=== PATIENT | female | born 1965 | race Caucasian/White ===

== ENCOUNTER 2017-03-13 19:43 | Emergency (ER) | payer SELFPAY ==
[2017-03-13 19:58] VITALS: BP 117/79
[2017-03-13] MEDS ORDERED: Albuterol/Ipratropium 3.0-0.5 MG/3 ML Neb Soln NEB ONE (20:16)
--- NOTE | 2017-03-13 20:19 | EDM.PDOC ---
ED HPI GENERAL MEDICAL PROBLEM - General Chief Complaint: Respiratory Problem Stated Complaint: ILLNESS Time Seen by Provider: 03/13/17 20:11 Source of Information: Reports: Patient, Family, RN Notes Reviewed History Limitations: Reports: No Limitations - History of Present Illness INITIAL COMMENTS - FREE TEXT/NARRATIVE: 51-year-old female presents to the emergency department day complaint of shortness of breath, she states she's been dealing with this for about a month does have a history of tobacco use has been evaluated by her primary care has been treated with a 2 week course of amoxicillin as well as prednisone coughs up white sputum feel short of breath and his wheezing has received no improvement from the antibiotics or the prednisone denies any fevers but has felt chilled - Related Data Allergies Allergy/AdvReac Type Severity Reaction Status Date / Time codeine Allergy Severe Swelling Verified 03/23/15 11:30 Home Meds: Home Meds Omeprazole [priLOSEC OTC] 20 mg PO DAILY 03/20/13 [History] Acyclovir 400 mg PO DAILY 03/23/15 [History] Albuterol [Ventolin HFA] 18 gm IN Q4HR PRN 03/23/15 [History] ALPRAZolam [Alprazolam] 0.25 mg PO DAILY PRN 03/13/17 [History] Albuterol Sulfate [Ventolin Hfa] 03/13/17 [History] Albuterol/Ipratropium [DuoNeb 3.0-0.5 MG/3 ML] 3 ml IN Q6HR PRN 03/13/17 [ History] Nystatin [Nystatin] 5 ml PO QID 03/13/17 [History] Venlafaxine [Effexor XR] 37.5 mg PO DAILY 03/13/17 [History] predniSONE [Prednisone] 20 mg PO ASDIRECTED 03/13/17 [History] Past Medical History Psychiatric History: Reports: Anxiety, Depression - Past Surgical History GI Surgical History: Reports: Cholecystectomy, Hernia Repair/Other Female Surgical History: Reports: Section Social & Family History - Tobacco Use Smoking Status *Q: Current Every Day Smoker Years of Tobacco use: 20 Packs/Tins Daily: 0.5 Used Tobacco, but Quit: No Second Hand Smoke Exposure: No - Alcohol Use Days Per Week of Alcohol Use: 0 - Recreational Drug Use Recreational Drug Use: No ED ROS GENERAL - Review of Systems Review Of Systems: See Below Constitutional: Reports: Chills. Denies: Fever HEENT: Reports: No Symptoms Respiratory: Reports: Shortness of Breath, Wheezing, Cough, Sputum Cardiovascular: Reports: Dyspnea on Exertion GI/Abdominal: Reports: No Symptoms : Reports: No Symptoms Musculoskeletal: Reports: No Symptoms Skin: Reports: No Symptoms ED EXAM, GENERAL - Physical Exam Exam: See Below Free Text/Narrative:: General: Female, not in any distress, alert and oriented x3 HEENT: head is atraumatic normocephalic, eyes pupils equal round reactive to light, sclera clear no conjunctivitis appreciated. Ears tympanic membranes clear and berman landmarks and light reflex are present bilaterally canals are clear. Nose no septal deviation, nares are clear, no blood present. Mouth mucosa is moist and pink no erythema or exudate noted in soft palate, tongue is midline uvula is midline, dentition is intact. Neck: Supple no thyromegaly no tracheal deviation. Nodes: Cervical nodes subclavicular nodes nontender no palpable lymphadenopathy noted. Lungs: Breath sounds are distant she does have an expiratory wheeze mid to lower lung ayoub bilaterally CV: Regular rate and rhythm S1 and S2 appreciated no murmurs rubs or gallops noted. Abdomen: Soft, nontender, no palpable masses or organomegaly appreciated, no distention no guarding bowel sounds are present, . Neuro: Cranial nerves II through XII grossly intact Skin: Warm and dry, intact Extremities: No lower extremity edema appreciated, Course - Vital Signs Last Recorded V/S: Last Vital Signs Temp 94.8 F L 03/13/17 20:08 Pulse 79 03/13/17 20:08 Resp 18 03/13/17 19:57 BP 117/79 03/13/17 20:08 Pulse Ox 94 L 03/13/17 20:08 - Orders/Labs/Meds Orders: Active Orders 24 hr Category Date Time Status RT Aerosol Therapy [RC] ASDIRECTED Care 03/13/17 20:16 Active Chest 2V [CR] Urgent Exams 03/13/17 20:15 Taken Labs: Laboratory Tests 03/13/17 03/13/17 03/13/17 Range/Units 20:15 20:15 20:22 WBC 9.7 (4.5-11.0) K/uL RBC 4.50 (3.30-5.50) M/uL Hgb 14.4 (12.0-15.0) g/dL Hct 41.7 (36.0-48.0) % MCV 93 (80-98) fL MCH 32 H (27-31) pg MCHC 35 (32-36) % Plt Count 262 (150-400) K/uL Neut % (Auto) 75 H (36-66) % Lymph % (Auto) 19 L (24-44) % [place]ccormick % (Auto) 6 (2-6) % Eos % (Auto) 0 L (2-4) % Baso % (Auto) 0 (0-1) % D-Dimer, Quantitative (0.0-400.0) ng/mL Sodium 141 (140-148) mmol/L Potassium 3.9 (3.6-5.2) mmol/L Chloride 102 (100-108) mmol/L Carbon Dioxide 26 (21-32) mmol/L Anion Gap 13.3 (5.0-14.0) mmol/L BUN 17 D (7-18) mg/dL Creatinine 0.9 (0.6-1.0) mg/dL Est Cr Clr Drug Dosing 56.90 mL/min Estimated GFR (MDRD) > 60 (>60) Glucose 104 (74-106) mg/dL Calcium 9.7 D (8.5-10.1) mg/dL Total Bilirubin 0.4 (0.2-1.0) mg/dL AST 13 L (15-37) U/L ALT 21 (12-78) U/L Alkaline Phosphatase 71 (46-116) U/L Troponin I < 0.017 (0.000-0.056) ng/mL NT-Pro-B Natriuret Pep 154 H (5-125) pg/mL Total Protein 7.4 (6.4-8.2) g/dL Albumin 4.0 (3.4-5.0) g/dL Globulin 3.4 (2.3-3.5) g/dL Albumin/Globulin Ratio 1.2 (1.2-2.2) Urine Color Urine Appearance Urine pH (4.5-8.0) Ur Specific Leeper (1.008-1.030) Urine Protein (NEGATIVE) mg/dL Urine Glucose (UA) (NEGATIVE) mg/dL Urine Ketones (NEGATIVE) mg/dL Urine Occult Blood (NEGATIVE) Urine Nitrite (NEGATIVE) Urine Bilirubin (NEGATIVE) Urine Urobilinogen (NORMAL) mg/dL Ur Leukocyte Esterase (NEGATIVE) Urine RBC (0-5) Urine WBC (0-5) Ur Epithelial Cells Amorphous Sediment Urine Bacteria Urine Mucus 03/13/17 03/13/17 Range/Units 20:49 21:03 WBC (4.5-11.0) K/uL RBC (3.30-5.50) M/uL Hgb (12.0-15.0) g/dL Hct (36.0-48.0) % MCV (80-98) fL MCH (27-31) pg MCHC (32-36) % Plt Count (150-400) K/uL Neut % (Auto) (36-66) % Lymph % (Auto) (24-44) % Mccormick % (Auto) (2-6) % Eos % (Auto) (2-4) % Baso % (Auto) (0-1) % D-Dimer, Quantitative 212 (0.0-400.0) ng/mL Sodium (140-148) mmol/L Potassium (3.6-5.2) mmol/L Chloride (100-108) mmol/L Carbon Dioxide (21-32) mmol/L Anion Gap (5.0-14.0) mmol/L BUN (7-18) mg/dL Creatinine (0.6-1.0) mg/dL Est Cr Clr Drug Dosing mL/min Estimated GFR (MDRD) (>60) Glucose (74-106) mg/dL Calcium (8.5-10.1) mg/dL Total Bilirubin (0.2-1.0) mg/dL AST (15-37) U/L ALT (12-78) U/L Alkaline Phosphatase (46-116) U/L Troponin I (0.000-0.056) ng/mL NT-Pro-B Natriuret Pep (5-125) pg/mL Total Protein (6.4-8.2) g/dL Albumin (3.4-5.0) g/dL Globulin (2.3-3.5) g/dL Albumin/Globulin Ratio (1.2-2.2) Urine Color Yellow Urine Appearance Clear Urine pH 6.0 (4.5-8.0) Ur Specific Leeper 1.010 (1.008-1.030) Urine Protein Negative (NEGATIVE) mg/dL Urine Glucose (UA) Normal (NEGATIVE) mg/dL Urine Ketones Negative (NEGATIVE) mg/dL Urine Occult Blood Negative (NEGATIVE) Urine Nitrite Negative (NEGATIVE) Urine Bilirubin Negative (NEGATIVE) Urine Urobilinogen Normal (NORMAL) mg/dL Ur Leukocyte Esterase Negative (NEGATIVE) Urine RBC 0-5 (0-5) Urine WBC 0-5 (0-5) Ur Epithelial Cells Rare Amorphous Sediment Not seen Urine Bacteria Not seen Urine Mucus Not seen Meds: Medications Discontinued Medications Generic Name Dose Route Start Last Admin Trade Name Freq PRN Reason Stop Dose Admin Albuterol/Ipratropium 3 ml 03/13/17 20:16 03/13/17 20:32 Duoneb 3.0-0.5 Mg/3 Ml NEB 03/13/17 20:17 3 ml ONETIME ONE Administration Departure - Departure Time of Disposition: 21:55 Disposition: Home, Self-Care 01 Condition: Fair Clinical Impression: Bronchitis Exacerbation of asthma Qualifiers: Asthma severity: mild Asthma persistence: intermittent Qualified Code(s): J45.21 - Mild intermittent asthma with (acute) exacerbation - Discharge Information Referrals: PCP,None [Primary Care Provider] - Forms: ED Department Discharge Additional Instructions: Take full course of antibiotics, continue prednisone 20 mg once a day for 7 days , continue to use your inhalers as prescribed, please follow-up with your primary care provider in 3-5 days for reevaluation, call return to the emergency department worsening of symptoms - My Orders Last 24 Hours: My Active Orders 03/13/17 20:15 Chest 2V [CR] Urgent 03/13/17 20:16 RT Aerosol Therapy [RC] ASDIRECTED - Assessment/Plan Last 24 Hours: My Active Orders 03/13/17 20:15 Chest 2V [CR] Urgent 03/13/17 20:16 RT Aerosol Therapy [RC] ASDIRECTED Plan: Assessment Acuity = acute Site and laterality = asthma exacerbation with bronchitis complicated in a patient with history of tobacco abuse and dependence Etiology = unclear etiology Manifestations = dyspnea, wheezing Location of injury = Home Lab values = CBC, CMP, urinalysis, BMP, troponin all within normal limits, chest x-ray I did review films myself I cannot appreciate any acute process, the official read from radiology is pending Plan She is going to continue prednisone 20 mg once a day for 7 days elected to empirically try azithromycin for inflammatory properties per package direction she'll continue with her inhalers as prescribed follow-up with primary care in 3 -5 days for reevaluation This note was dictated using [employer] voice recognition software please call with any questions on syntax or diann.
--- NOTE | 2017-03-14 08:41 | CR ---
Chest 2V HISTORY: Shortness of breath COMPARISON: 09/04/2009 FINDINGS: Cardiac size and pulmonary vessels normal. There are no infiltrates or effusions. No pneumo thorax. The osseous structures appear normal. IMPRESSION: No acute pulmonary disease.
== END 2017-03-13 22:19 | disposition home or self-care (01) ==
LOC: JP.ED 19:43
DX: J45.21 Mild intermittent asthma with (acute) exacerbation (principal); J40 Bronchitis, not specified as acute or chronic; F17.210 Nicotine dependence, cigarettes, uncomplicated; F32.9 Major depressive disorder, single episode, unspecified; Z79.899 Other long term (current) drug therapy; Z88.5 Allergy status to narcotic agent
CPT/HCPCS: 36415; 71046; 80053; 81001; 83880; 84484; 85025; 85379; 87804; 94640; 99285; J7620; 99283

== ENCOUNTER 2017-06-21 09:51 | Emergency (ER) | payer SELFPAY ==
[2017-06-21 10:06] VITALS: BP 110/71
[2017-06-21] MEDS ORDERED: Sodium Chloride 0.9% 10 ML Syringe FLUSH PRN (10:27)
[2017-06-21] MEDS ORDERED: Morphine 2 MG/ML Syringe IVPUSH PRN (10:27)
[2017-06-21] MEDS ORDERED: Aspirin 81 MG Tab.Chew PO ONE (10:27)
[2017-06-21] MEDS ORDERED: Ondansetron 4 MG/2 ML SDV IVPUSH ONE (10:30)
[2017-06-21] MEDS ORDERED: Albuterol/Ipratropium 3.0-0.5 MG/3 ML Neb Soln NEB ONE ×2 (10:33→12:46)
--- NOTE | 2017-06-21 10:33 | EDM.PDOC ---
ED HPI GENERAL MEDICAL PROBLEM - General Chief Complaint: Respiratory Problem Stated Complaint: SOB,CHEST HEAVINESS Time Seen by Provider: 06/21/17 10:21 Source of Information: Reports: Patient, Family, Old Records, RN Notes Reviewed History Limitations: Reports: No Limitations - History of Present Illness INITIAL COMMENTS - FREE TEXT/NARRATIVE: 51-year-old female presents to the emergency department today complaint of chest pain and shortness of breath, she states he's had chest pain for the last 24 hours has had difficulty breathing for the last 3 months has a known history of asthma her breathing we'll wax and wane has followed up with her primary care provider. She presents emergency department today primarily for the increasing pain in her chest. She is nauseated does have diaphoresis Chest Pain Score (Numeric/FACES): 8 - Related Data Allergies Allergy/AdvReac Type Severity Reaction Status Date / Time codeine Allergy Severe Swelling Verified 03/23/15 11:30 Home Meds: Home Meds Omeprazole [priLOSEC OTC] 20 mg PO DAILY 03/20/13 [History] Acyclovir 400 mg PO DAILY 03/23/15 [History] Albuterol [Ventolin HFA] 18 gm IN Q4HR PRN 03/23/15 [History] ALPRAZolam [Alprazolam] 0.25 mg PO DAILY PRN 03/13/17 [History] Albuterol Sulfate [Ventolin Hfa] 03/13/17 [History] Albuterol/Ipratropium [DuoNeb 3.0-0.5 MG/3 ML] 3 ml IN Q6HR PRN 03/13/17 [ History] Nystatin 5 ml PO QID 03/13/17 [History] Venlafaxine [Effexor XR] 37.5 mg PO DAILY 03/13/17 [History] predniSONE [Prednisone] 20 mg PO ASDIRECTED 03/13/17 [History] Past Medical History Respiratory History: Reports: Asthma, Bronchitis, Recurrent, Other (See Below) Other Respiratory History: 03/06/17 dx pnue Psychiatric History: Reports: Anxiety, Depression - Past Surgical History GI Surgical History: Reports: Cholecystectomy, Hernia Repair/Other Female Surgical History: Reports: Section Social & Family History - Tobacco Use Smoking Status *Q: Current Every Day Smoker Years of Tobacco use: 30 Packs/Tins Daily: 0.5 Used Tobacco, but Quit: Yes Month/Year Tobacco Last Used: 06/19/17 Second Hand Smoke Exposure: No - Caffeine Use Caffeine Use: Reports: None - Alcohol Use Days Per Week of Alcohol Use: 0 - Recreational Drug Use Recreational Drug Use: Yes Recreational Drug Type: Reports: Marijuana/Hashish Recreational Drug Use Frequency: Monthly ED ROS GENERAL - Review of Systems Review Of Systems: See Below Constitutional: Denies: Fever, Chills HEENT: Reports: No Symptoms Respiratory: Reports: Shortness of Breath, Wheezing, Cough. Denies: Sputum Cardiovascular: Reports: Chest Pain GI/Abdominal: Reports: No Symptoms : Reports: No Symptoms Musculoskeletal: Reports: No Symptoms Skin: Reports: No Symptoms ED EXAM, GENERAL - Physical Exam Exam: See Below Free Text/Narrative:: General: Female mild distress secondary to difficulty breathing, alert and oriented x3 HEENT: head is atraumatic normocephalic, eyes pupils equal round reactive to light, sclera clear no conjunctivitis appreciated. Ears tympanic membranes clear and berman landmarks and light reflex are present bilaterally canals are clear. Nose no septal deviation, nares are clear, no blood present. Mouth mucosa is moist and pink no erythema or exudate noted in soft palate, tongue is midline uvula is midline, dentition is none. Neck: Supple no thyromegaly no tracheal deviation. Nodes: Cervical nodes subclavicular nodes nontender no palpable lymphadenopathy noted. Lungs: Distant breath sounds with wheezing mid to lower lung ayoub bilaterally CV: Regular rate and rhythm S1 and S2 appreciated no murmurs rubs or gallops noted. Abdomen: Soft, nontender, no palpable masses or organomegaly appreciated, no distention no guarding bowel sounds are present, . Neuro: Cranial nerves II through XII grossly intact Skin: Warm and dry, intact Extremities: No lower extremity edema appreciated, . Course - Vital Signs Last Recorded V/S: Last Vital Signs Temp 96.7 F 06/21/17 10:03 Pulse 86 06/21/17 11:21 Resp 22 H 06/21/17 11:22 BP 110/71 06/21/17 11:21 Pulse Ox 96 06/21/17 11:22 - Orders/Labs/Meds Orders: Active Orders 24 hr Category Date Time Status Cardiac Monitoring [RC] .As Directed Care 06/21/17 10:27 Active EKG Documentation Completion [RC] ASDIRECTED Care 06/21/17 10:28 Active Peripheral IV Care [RC] . DIRECTED Care 06/21/17 10:28 Active RT Aerosol Therapy [RC] ASDIRECTED Care 06/21/17 10:33 Active RT Aerosol Therapy [RC] ASDIRECTED Care 06/21/17 12:47 Active UA W/MICROSCOPIC [URIN] Stat Lab 06/21/17 13:45 Ordered Morphine Med 06/21/17 10:27 Active 2 mg IVPUSH Q10M PRN Sodium Chloride 0.9% [Saline Flush] Med 06/21/17 10:27 Active 10 ml FLUSH ASDIRECTED PRN Peripheral IV Insertion Adult [OM.PC] Stat Oth 06/21/17 10:27 Ordered Saline Lock Insert [OM.PC] Stat Oth 06/21/17 10:27 Ordered EKG 12 Lead [EK] Stat Ther 06/21/17 10:28 Ordered Medication Orders Morphine Sulfate (Morphine) 2 mg IVPUSH Q10M PRN PRN Reason: Chest Pain Stop: 06/22/17 10:28 Last Admin: 06/21/17 11:19 Dose: 2 mg Sodium Chloride (Saline Flush) 10 ml FLUSH ASDIRECTED PRN PRN Reason: Keep Vein Open Last Admin: 06/21/17 11:17 Dose: 10 ml Labs: Laboratory Tests 06/21/17 06/21/17 06/21/17 Range/Units 10:40 10:40 10:40 WBC 17.8 H (4.5-11.0) K/uL RBC 4.75 (3.30-5.50) M/uL Hgb 14.8 (12.0-15.0) g/dL Hct 43.8 (36.0-48.0) % MCV 92 (80-98) fL MCH 31 (27-31) pg MCHC 34 (32-36) % Plt Count 297 (150-400) K/uL Neut % (Auto) 79 H (36-66) % Lymph % (Auto) 13 L (24-44) % [place] % (Auto) 8 H (2-6) % Eos % (Auto) 0 L (2-4) % Baso % (Auto) 0 (0-1) % PT 11.3 (9.5-12.0) sec INR 1.05 (0.80-1.20) APTT 29.6 (27.0-36.0) sec D-Dimer, Quantitative 272 (0.0-400.0) ng/mL Sodium (140-148) mmol/L Potassium (3.6-5.2) mmol/L Chloride (100-108) mmol/L Carbon Dioxide (21-32) mmol/L Anion Gap (5.0-14.0) mmol/L BUN (7-18) mg/dL Creatinine (0.6-1.0) mg/dL Est Cr Clr Drug Dosing mL/min Estimated GFR (MDRD) (>60) Glucose (74-106) mg/dL Lactic Acid (0.4-2.0) mmol/L Calcium (8.5-10.1) mg/dL Total Bilirubin (0.2-1.0) mg/dL AST (15-37) U/L ALT (12-78) U/L Alkaline Phosphatase (46-116) U/L Troponin I (0.000-0.056) ng/mL NT-Pro-B Natriuret Pep (5-125) pg/mL Total Protein (6.4-8.2) g/dL Albumin (3.4-5.0) g/dL Globulin (2.3-3.5) g/dL Albumin/Globulin Ratio (1.2-2.2) Urine Color Urine Appearance Urine pH (4.5-8.0) Ur Specific Kemp (1.008-1.030) Urine Protein (NEGATIVE) mg/dL Urine Glucose (UA) (NEGATIVE) mg/dL Urine Ketones (NEGATIVE) mg/dL Urine Occult Blood (NEGATIVE) Urine Nitrite (NEGATIVE) Urine Bilirubin (NEGATIVE) Urine Urobilinogen (NORMAL) mg/dL Ur Leukocyte Esterase (NEGATIVE) Urine RBC (0-5) Urine WBC (0-5) Ur Epithelial Cells Amorphous Sediment Urine Bacteria Urine Mucus 06/21/17 06/21/17 06/21/17 Range/Units 10:40 11:29 13:45 WBC (4.5-11.0) K/uL RBC (3.30-5.50) M/uL Hgb (12.0-15.0) g/dL Hct (36.0-48.0) % MCV (80-98) fL MCH (27-31) pg MCHC (32-36) % Plt Count (150-400) K/uL Neut % (Auto) (36-66) % Lymph % (Auto) (24-44) % [place] % (Auto) (2-6) % Eos % (Auto) (2-4) % Baso % (Auto) (0-1) % PT (9.5-12.0) sec INR (0.80-1.20) APTT (27.0-36.0) sec D-Dimer, Quantitative (0.0-400.0) ng/mL Sodium 140 (140-148) mmol/L Potassium 3.7 (3.6-5.2) mmol/L Chloride 103 (100-108) mmol/L Carbon Dioxide 22 (21-32) mmol/L Anion Gap 15.4 H (5.0-14.0) mmol/L BUN 10 (7-18) mg/dL Creatinine 1.0 (0.6-1.0) mg/dL Est Cr Clr Drug Dosing 52.06 mL/min Estimated GFR (MDRD) 59 L (>60) Glucose 108 H (74-106) mg/dL Lactic Acid 1.0 (0.4-2.0) mmol/L Calcium 9.4 (8.5-10.1) mg/dL Total Bilirubin 0.7 D (0.2-1.0) mg/dL AST 16 (15-37) U/L ALT 17 (12-78) U/L Alkaline Phosphatase 94 (46-116) U/L Troponin I < 0.017 (0.000-0.056) ng/mL NT-Pro-B Natriuret Pep 116 (5-125) pg/mL Total Protein 8.0 (6.4-8.2) g/dL Albumin 3.7 (3.4-5.0) g/dL Globulin 4.3 H (2.3-3.5) g/dL Albumin/Globulin Ratio 0.9 L (1.2-2.2) Urine Color Yellow Urine Appearance Slightly cloudy Urine pH 6.0 (4.5-8.0) Ur Specific Kemp 1.010 (1.008-1.030) Urine Protein Negative (NEGATIVE) mg/dL Urine Glucose (UA) Normal (NEGATIVE) mg/dL Urine Ketones Negative (NEGATIVE) mg/dL Urine Occult Blood Negative (NEGATIVE) Urine Nitrite Negative (NEGATIVE) Urine Bilirubin Negative (NEGATIVE) Urine Urobilinogen Normal (NORMAL) mg/dL Ur Leukocyte Esterase Negative (NEGATIVE) Urine RBC 0-5 (0-5) Urine WBC 0-5 (0-5) Ur Epithelial Cells Many Amorphous Sediment Not seen Urine Bacteria Few Urine Mucus Many Meds: Medications Generic Name Dose Route Start Last Admin Trade Name Jamesq PRN Reason Stop Dose Admin Morphine Sulfate 2 mg 06/21/17 10:27 06/21/17 11:19 Morphine IVPUSH 06/22/17 10:28 2 mg Q10M PRN Administration Chest Pain Sodium Chloride 10 ml 06/21/17 10:27 06/21/17 11:17 Saline Flush FLUSH 10 ml ASDIRECTED PRN Administration Keep Vein Open Discontinued Medications Generic Name Dose Route Start Last Admin Trade Name Freq PRN Reason Stop Dose Admin Albuterol/Ipratropium 3 ml 06/21/17 10:33 06/21/17 11:06 Duoneb 3.0-0.5 Mg/3 Ml NEB 06/21/17 10:34 3 ml ONETIME ONE Administration Albuterol/Ipratropium 3 ml 06/21/17 12:46 06/21/17 13:02 Duoneb 3.0-0.5 Mg/3 Ml NEB 06/21/17 12:47 3 ml ONETIME ONE Administration Aspirin 324 mg 06/21/17 10:27 06/21/17 11:05 Aspirin PO 06/21/17 10:28 324 mg ONETIME ONE Administration Lactated Ringer's 1,000 mls @ 999 mls/hr 06/21/17 11:32 06/21/17 12:16 Ringers, Lactated IV 06/21/17 12:32 999 mls/hr BOLUS ONE Administration Methylprednisolone Sodium Succinate 125 mg 06/21/17 12:46 06/21/17 13:01 Solu-Medrol IVPUSH 06/21/17 12:47 125 mg ONETIME ONE Administration Ondansetron HCl 4 mg 06/21/17 10:30 06/21/17 11:05 Zofran IVPUSH 06/21/17 10:31 4 mg ONETIME ONE Administration Departure - Departure Time of Disposition: 14:03 Disposition: Home, Self-Care 01 Condition: Fair Clinical Impression: Bronchitis Exacerbation of asthma Qualifiers: Asthma severity: mild Asthma persistence: intermittent Qualified Code(s): J45.21 - Mild intermittent asthma with (acute) exacerbation - Discharge Information Referrals: PCP,None [Primary Care Provider] - Forms: ED Department Discharge Additional Instructions: Take full course of antibiotics, take prednisone 20 mg once a day for 5 days start tomorrow, please follow-up with your primary care provider in the next 3- 5 days for reevaluation - My Orders Last 24 Hours: My Active Orders 06/21/17 10:27 Cardiac Monitoring [RC] .As Directed Morphine 2 mg IVPUSH Q10M PRN Sodium Chloride 0.9% [Saline Flush] 10 ml FLUSH ASDIRECTED PRN Peripheral IV Insertion Adult [OM.PC] Stat Saline Lock Insert [OM.PC] Stat 06/21/17 10:28 EKG Documentation Completion [RC] ASDIRECTED Peripheral IV Care [RC] . DIRECTED EKG 12 Lead [EK] Stat 06/21/17 10:33 RT Aerosol Therapy [RC] ASDIRECTED 06/21/17 12:47 RT Aerosol Therapy [RC] ASDIRECTED 06/21/17 13:45 UA W/MICROSCOPIC [URIN] Stat - Assessment/Plan Last 24 Hours: My Active Orders 06/21/17 10:27 Cardiac Monitoring [RC] .As Directed Morphine 2 mg IVPUSH Q10M PRN Sodium Chloride 0.9% [Saline Flush] 10 ml FLUSH ASDIRECTED PRN Peripheral IV Insertion Adult [OM.PC] Stat Saline Lock Insert [OM.PC] Stat 06/21/17 10:28 EKG Documentation Completion [RC] ASDIRECTED Peripheral IV Care [RC] . DIRECTED EKG 12 Lead [EK] Stat 06/21/17 10:33 RT Aerosol Therapy [RC] ASDIRECTED 06/21/17 12:47 RT Aerosol Therapy [RC] ASDIRECTED 06/21/17 13:45 UA W/MICROSCOPIC [URIN] Stat Plan: Assessment Acuity = chronic Site and laterality = bronchitis with mild intermittent asthma history of tobacco use and dependence Etiology = unclear etiology Manifestations = dyspnea Location of injury = Home Lab values = WBC elevated at 17.8 consistent leukocytosis remainder of CBC, CMP unremarkable, troponin negative, d-dimer negative chest x-ray shows no acute process, urinalysis unremarkable Plan I did review lab work chest x-ray results with her she received nebulizer treatment and Solu-Medrol while in the emergency department plan is discharge home doxycycline 100 mg by mouth twice a day 7 days prednisone 20 mg once a day 5 days starting tomorrow follow-up primary care in 3-5 days for reevaluation This note was dictated using [employer] voice recognition software please call with any questions on syntax or diann.
--- NOTE | 2017-06-21 11:24 | CR ---
Chest 2V HISTORY: Chest pain COMPARISON: 03/13/2017 FINDINGS: Cardiac size and pulmonary vessels normal. There are no infiltrates or effusions. No pneumo thorax. The osseous structures appear normal. IMPRESSION: No acute pulmonary disease.
[2017-06-21] MEDS ORDERED: Lactated Ringers 1,000 ML IV ONE (11:32)
[2017-06-21] MEDS ORDERED: methylPREDNISolone Sodium Succinate 125 MG/2 ML SDV IVPUSH ONE (12:46)
== END 2017-06-21 14:22 | disposition home or self-care (01) ==
LOC: JP.ED 09:51
DX: J45.21 Mild intermittent asthma with (acute) exacerbation (principal); J40 Bronchitis, not specified as acute or chronic; Z88.5 Allergy status to narcotic agent; Z79.899 Other long term (current) drug therapy; F41.9 Anxiety disorder, unspecified; F32.9 Major depressive disorder, single episode, unspecified; F17.210 Nicotine dependence, cigarettes, uncomplicated
CPT/HCPCS: 36415; 71046; 80053; 81001; 83605; 83880; 84484; 85025; 85379; 85610; 85730; 93005; 94640; 96361; 96374; 96375; 99285; A9270; J2270; J2405; J2930; J7050; J7120; J7620; 93010; 99284

== ENCOUNTER 2017-08-10 08:41 | Emergency (ER) | payer SELFPAY ==
[2017-08-10] MEDS ORDERED: Lactated Ringers 1,000 ML IV ONE (09:50)
[2017-08-10] MEDS ORDERED: Metoclopramide 10 MG/2 ML SDV IVPUSH ONE (09:51)
[2017-08-10] MEDS ORDERED: Acetaminophen 500 MG Tab PO ONE (10:09)
[2017-08-10] MEDS ORDERED: Sucralfate 1 GM Tab PO ONE (10:09)
--- NOTE | 2017-08-10 10:09 | EDM.PDOC ---
ED HPI GENERAL MEDICAL PROBLEM - General Chief Complaint: Abdominal Pain Stated Complaint: nausa and stomach pain Time Seen by Provider: 08/10/17 09:50 Source of Information: Reports: Patient, Old Records, RN History Limitations: Reports: Other (very poor historian) - History of Present Illness INITIAL COMMENTS - FREE TEXT/NARRATIVE: 52 yo female presents with nausea, vomiting and epigastric pain of several days duration. She has been to her primary and urgent care per nursing report. She is scheduled for EGD ? tomorrow. No blood in either her stool or her emesis. No fever. Is a smoker and trying to cut down. Is not sure what medications she is currently on. It is believed that she is on Zofran tablets for nausea and not able to keep them down. Has had blood work in the clinic that patient states was all normal. 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: Other (see below) (uncertain, does not know meds) - Related Data Allergies Allergy/AdvReac Type Severity Reaction Status Date / Time codeine Allergy Severe Swelling Unverified 08/10/17 11:03 Home Meds: Home Meds Omeprazole [priLOSEC OTC] 20 mg PO DAILY 03/20/13 [History] Acyclovir 400 mg PO DAILY 03/23/15 [History] Albuterol [Ventolin HFA] 18 gm IN Q4HR PRN 03/23/15 [History] ALPRAZolam [Alprazolam] 0.25 mg PO DAILY PRN 03/13/17 [History] Albuterol/Ipratropium [DuoNeb 3.0-0.5 MG/3 ML] 3 ml IN Q6HR PRN 03/13/17 [ History] Acetaminophen/HYDROcodone [Cardinal 325-5 MG] 1 tab PO 08/10/17 [History] Benzonatate 1 tab PO ASDIRECTED PRN 08/10/17 [History] Calcium Carb & Citrate/Vit D3 [Calcium + D3 ER Tablet] 1 each PO DAILY 08/10/17 [History] Cyanocobalamin (Vitamin B-12) [B-12] 1,000 mcg PO DAILY 08/10/17 [History] Ketorolac Tromethamine 10 mg PO 08/10/17 [History] Mupirocin Oint [Bactroban Oint] 2 percent TOP ASDIRECTED PRN 08/10/17 [History] Naproxen Sodium 220 mg PO ASDIRECTED PRN 08/10/17 [History] Ondansetron HCl [Ondansetron] 4 mg PO ASDIRECTED PRN 08/10/17 [History] Ranitidine [Zantac] 150 mg PO ASDIRECTED PRN 08/10/17 [History] Venlafaxine [Effexor XR] 150 mg PO DAILY 08/10/17 [History] diphenhydrAMINE HCl [Diphenhydramine HCl] 25 mg PO ASDIRECTED PRN 08/10/17 [ History] traZODone 50 mg PO BEDTIME 08/10/17 [History] Past Medical History - Past Health History Medical/Surgical History: Denies Medical/Surgical History Respiratory History: Reports: Asthma, Bronchitis, Recurrent, Other (See Below) Other Respiratory History: 03/06/17 dx pnue Psychiatric History: Reports: Anxiety, Depression - Past Surgical History GI Surgical History: Reports: Cholecystectomy, Hernia Repair/Other Female Surgical History: Reports: Section Social & Family History - Family History Family Medical History: Noncontributory - Tobacco Use Smoking Status *Q: Current Every Day Smoker Years of Tobacco use: 30 Packs/Tins Daily: 0.5 Second Hand Smoke Exposure: Yes - Caffeine Use Caffeine Use: Reports: Soda Other Caffeine Use: occasional mtn dew - Recreational Drug Use Recreational Drug Use: Yes Recreational Drug Type: Reports: Marijuana/Hashish Recreational Drug Use Frequency: Rarely ED ROS GENERAL - Review of Systems Review Of Systems: See Below Constitutional: Reports: Decreased Appetite HEENT: Reports: No Symptoms Respiratory: Reports: No Symptoms Cardiovascular: Reports: No Symptoms Endocrine: Reports: No Symptoms GI/Abdominal: Reports: Abdominal Pain, Nausea, Vomiting. Denies: Black Stool, Bloody Stool, Constipation, Diarrhea, Distension, Flatus, Hematemesis, Melena : Reports: No Symptoms Musculoskeletal: Reports: No Symptoms Skin: Reports: No Symptoms Neurological: Reports: No Symptoms Psychiatric: Reports: No Symptoms ED EXAM, GI/ABD - Physical Exam Exam: See Below Exam Limited By: No Limitations General Appearance: Alert, WD/WN, No Apparent Distress Eyes: Bilateral: Normal Appearance Ears: Normal External Exam, Normal Canal, Hearing Grossly Normal, Normal TMs Nose: Normal Inspection, Normal Mucosa, No Blood Throat/Mouth: Normal Inspection, Normal Lips, Normal Oropharynx, Normal Voice, No Airway Compromise, Other (Oral mucosa not dry.) Head: Atraumatic, Normocephalic Neck: Normal Inspection, Supple Respiratory/Chest: No Respiratory Distress, Lungs Clear, Normal Breath Sounds, No Accessory Muscle Use Cardiovascular: Regular Rate, Rhythm GI/Abdominal Exam: Normal Bowel Sounds, Soft, Non-Tender Back Exam: Normal Inspection Extremities: Normal Inspection, Normal Range of Motion, Non-Tender, No Pedal Edema Neurological: Alert, Oriented, CN II-XII Intact, Normal Cognition Psychiatric: Normal Affect, Normal Mood Skin Exam: Warm, Dry, Intact, Normal Color, No Rash Lymphatic: No Adenopathy Course - Vital Signs Last Recorded V/S: Last Vital Signs Temp 35.6 C 08/10/17 09:38 Pulse 83 08/10/17 09:38 Resp 12 08/10/17 09:38 BP 127/88 08/10/17 09:38 Pulse Ox 90 L 08/10/17 09:38 - Orders/Labs/Meds Orders: Active Orders 24 hr Category Date Time Status Orthostatic Vital Signs [RC] ASDIRECTED Care 08/10/17 09:51 Active Meds: Medications Discontinued Medications Generic Name Dose Route Start Last Admin Trade Name Jamesq PRN Reason Stop Dose Admin Acetaminophen 1,000 mg 08/10/17 10:09 08/10/17 10:48 Tylenol Extra Strength PO 08/10/17 10:10 1,000 mg ONETIME ONE Administration Lactated Ringer's 1,000 mls @ 1,000 mls/hr 08/10/17 09:50 08/10/17 10:09 Ringers, Lactated IV 08/10/17 10:49 1,000 mls/hr BOLUS ONE Administration Metoclopramide HCl 10 mg 08/10/17 09:51 08/10/17 10:10 Reglan IVPUSH 08/10/17 09:52 10 mg ONETIME ONE Administration Sucralfate 1 gm 08/10/17 10:09 08/10/17 10:48 Carafate PO 08/10/17 10:10 1 gm ONETIME ONE Administration Departure - Departure Time of Disposition: 11:15 Disposition: Home, Self-Care 01 Condition: Good Clinical Impression: Gastritis Qualifiers: Gastritis type: unspecified gastritis Chronicity: unspecified Gastritis bleeding: without bleeding Qualified Code(s): K29.70 - Gastritis, unspecified, without bleeding Nausea and vomiting Qualifiers: Vomiting type: unspecified Vomiting Intractability: non-intractable Qualified Code(s): R11.2 - Nausea with vomiting, unspecified - Discharge Information Referrals: PCP,None [Primary Care Provider] - Forms: ED Department Discharge - My Orders Last 24 Hours: My Active Orders 08/10/17 09:51 Orthostatic Vital Signs [RC] ASDIRECTED - Assessment/Plan Last 24 Hours: My Active Orders 08/10/17 09:51 Orthostatic Vital Signs [RC] ASDIRECTED
[2017-08-10 11:29] VITALS: BP 98/65
== END 2017-08-10 11:30 | disposition home or self-care (01) ==
LOC: JP.ED 08:41
DX: K29.70 Gastritis, unspecified, without bleeding (principal); F17.210 Nicotine dependence, cigarettes, uncomplicated; Z88.5 Allergy status to narcotic agent; Z79.899 Other long term (current) drug therapy
CPT/HCPCS: 96361; 96374; 99284; A9270; J2765; J7120

== ENCOUNTER 2017-08-11 08:48 | Day surgery (SDC) | payer SELFPAY ==
[2017-08-11] MEDS ORDERED: Sodium Chloride 0.9% 1,000 ML IV SCH (09:30)
[2017-08-11] MEDS ORDERED: Propofol 200 MG/20 ML SDV ONE (10:51)
[2017-08-11] MEDS ORDERED: Scopolamine 1.5 MG Transdermal Patch TOP ONE (10:51)
[2017-08-11] MEDS ORDERED: fentaNYL 100 MCG/2 ML SDV ONE (10:51)
[2017-08-11] MEDS ORDERED: Ondansetron 4 MG/2 ML SDV IVPUSH ONE (10:51)
[2017-08-11] MEDS ORDERED: Midazolam 1 MG/ML 2 ML SDV ONE (10:51)
[2017-08-11 12:56] VITALS: BP 148/95
--- NOTE | 2017-08-14 08:28 | OR ---
DATE OF PROCEDURE: 08/11/2017 PROCEDURE: EGD. FINDINGS: Gastritis (biopsied before cold biopsy forceps for H. pylori). COMPLICATIONS: None. TRANSMISSION AND COORDINATION ENGINEER: None. ANESTHESIA: MAC. DESCRIPTION OF PROCEDURE: The patient was placed in left lateral decubitus position. The EGD scope was introduced and advanced atraumatically into the duodenum. On retroflex, there was no significant hiatal hernia. The patient had inflammation consistent with gastritis with possible H. pylori. This was biopsied multiple times for evaluation. The esophagus was normal. The patient tolerated the procedure well. The patient may have mild reflux, but no abnormalities. Abelardo Rich MD /[id number]
== END 2017-08-11 13:12 | disposition home or self-care (01) ==
LOC: JP.SDS 08:48
PROVIDERS: ATTEND Surgery
DX: K29.70 Gastritis, unspecified, without bleeding (principal); K21.9 Gastro-esophageal reflux disease without esophagitis; F17.200 Nicotine dependence, unspecified, uncomplicated; Z88.5 Allergy status to narcotic agent
CPT/HCPCS: 43239; 81025; A9270; J2250; J2405; J2704; J3010; J7030; 88305

== ENCOUNTER 2017-09-12 20:33 | Inpatient (IN) | payer SELFPAY ==
[2017-09-12] MEDS ORDERED: HYDROmorphone 1 MG/ML Syringe IVPUSH ONE (22:20)
[2017-09-12] MEDS ORDERED: Pantoprazole 40 MG Vial IVPUSH ONE (22:21)
[2017-09-12] MEDS ORDERED: Ondansetron 4 MG/2 ML SDV IVPUSH ONE (22:22)
[2017-09-12] MEDS ORDERED: Sodium Chloride 0.9% 1,000 ML IV SCH (22:30)
[2017-09-12] MEDS ORDERED: Sodium Chloride 0.9% 100 ML IV SCH (22:30)
[2017-09-12] MEDS ORDERED: Iopamidol 612 MG/ML 100 ML Bottle IV SCH (22:30)
--- NOTE | 2017-09-12 23:44 | EDM.PDOC ---
ED HPI GENERAL MEDICAL PROBLEM - General Chief Complaint: Gastrointestinal Problem Stated Complaint: UPPER ABD PAIN Time Seen by Provider: 09/12/17 22:01 Source of Information: Reports: Patient, Family ( and son) History Limitations: Reports: No Limitations - History of Present Illness INITIAL COMMENTS - FREE TEXT/NARRATIVE: abdominal pain; this is a 52 year old female presents to ER with and Son , report acute abdominal pain, rates pain at 11 out of 10. She reports has been having abdominal pain for 2 months with a 25 to 30 pound weight loss. She has been unable to eat due to the pain in abdomen. She felt she was getting worse, she went to see Chiropractor. she was treated with herbal supplement. The list was Pyloristat 2 with breakfast , antiflux one with breakfast, carbonated water 7 oz a day, ultra clear review 2 scoops a day, nancy fly trap extract 6 drops or 2 squeezes a day. Dynanvit F& G 1 scoop, Bone Broth 1 in am, Fermented tobacco 1/8 teaspoon in mouth for 7 minutes, avoid grains, can eat meats and veggies. She was home, took the Nancy Fly Trap Extract then began to experience worsen abdominal pain. its was intense unstoppable pain. 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: Reports: Other (see below) abd pain Pain Score (Numeric/FACES): 10 - Related Data Allergies Allergy/AdvReac Type Severity Reaction Status Date / Time codeine Allergy Severe Swelling Verified 09/12/17 22:28 alcohol Allergy Vomiting Verified 09/12/17 22:28 Home Meds: Home Meds Omeprazole [priLOSEC OTC] 20 mg PO DAILY 03/20/13 [History] Acyclovir 400 mg PO DAILY PRN 03/23/15 [History] Albuterol [Ventolin HFA] 18 gm IN Q4HR PRN 03/23/15 [History] Mupirocin Oint [Bactroban Oint] 2 percent TOP ASDIRECTED PRN 08/10/17 [History] Ondansetron HCl [Ondansetron] 4 mg PO ASDIRECTED PRN 08/10/17 [History] medroxyPROGESTERone Acetate [Depo-Provera] 1 applic IM Q90D 09/12/17 [History] Past Medical History - Past Health History Medical/Surgical History: Denies Medical/Surgical History Respiratory History: Reports: Asthma, Bronchitis, Recurrent, Other (See Below) Other Respiratory History: 03/06/17 dx pnue Gastrointestinal History: Reports: Gastritis, GERD CHARGE LPN History: Reports: Psychiatric History: Reports: Anxiety, Depression - Infectious Disease History Infectious Disease History: Reports: Chicken Pox - Past Surgical History GI Surgical History: Reports: Cholecystectomy, Hernia Repair/Other Female Surgical History: Reports: Section Social & Family History - Family History Family Medical History: Noncontributory - Tobacco Use Smoking Status *Q: Current Every Day Smoker Years of Tobacco use: 38 Packs/Tins Daily: 0.7 - Caffeine Use Caffeine Use: Reports: None Other Caffeine Use: occasional mtn dew - Recreational Drug Use Recreational Drug Use: Yes Drug Use in Last 12 Months: Yes Recreational Drug Type: Reports: Marijuana/Hashish - Living Situation & Occupation Living situation: Reports: , with Family ED ROS GENERAL - Review of Systems Review Of Systems: See Below Constitutional: Reports: Fever, Malaise, Weight Loss (2months ago wt at 120 to 125 pounds, now 98 pounds) HEENT: Reports: No Symptoms Respiratory: Reports: Cough, Other (tobacco use daily, smokes less than a pack per day but more than 1/2 pack per day.) Cardiovascular: Reports: No Symptoms Endocrine: Reports: No Symptoms GI/Abdominal: Reports: Abdominal Pain, Decreased Appetite : Reports: No Symptoms Musculoskeletal: Reports: No Symptoms Skin: Reports: No Symptoms Neurological: Reports: No Symptoms Psychiatric: Reports: No Symptoms Hematologic/Lymphatic: Reports: No Symptoms Immunologic: Reports: No Symptoms ED EXAM, GENERAL - Physical Exam Exam: See Below Exam Limited By: No Limitations General Appearance: Alert, Mild Distress, Thin Eye Exam: Bilateral Eye: Normal Inspection Ears: Normal External Exam, Normal Canal, Normal TMs Nose: Normal Inspection, Normal Mucosa, No Blood Throat/Mouth: Normal Inspection, Normal Lips, Normal Teeth, Normal Gums, Normal Oropharynx, Normal Voice, No Airway Compromise Head: Atraumatic, Normocephalic Neck: Normal Inspection, Supple, Non-Tender, Full Range of Motion Respiratory/Chest: No Respiratory Distress, No Accessory Muscle Use, Decreased Breath Sounds (bilateral), Wheezing Cardiovascular: Normal Peripheral Pulses, Regular Rate, Rhythm, No Edema, No Gallop, No JVD, No Murmur, No Rub GI/Abdominal: Normal Bowel Sounds, Soft, Tender (generalized tenderness) (Female) Exam: Deferred Rectal (Female) Exam: Deferred Back Exam: Normal Inspection, Full Range of Motion, NT Extremities: Normal Inspection, Normal Range of Motion, Non-Tender, Normal Capillary Refill, No Pedal Edema Neurological: No Motor/Sensory Deficits Psychiatric: Normal Affect, Normal Mood Skin Exam: Warm, Dry, Intact, Normal Color Lymphatic: No Adenopathy Course - Vital Signs Last Recorded V/S: Last Vital Signs Temp 36.4 C 09/12/17 22:49 Pulse 79 09/12/17 22:49 Resp 16 09/12/17 22:49 BP 113/78 09/12/17 22:49 Pulse Ox 93 L 09/12/17 22:49 - Orders/Labs/Meds Orders: Active Orders 24 hr Category Date Time Status Abdomen Pelvis w Cont [CT] Stat Exams 09/12/17 22:27 Taken UA W/MICROSCOPIC [URIN] Urgent Lab 09/12/17 22:40 Ordered Iopamidol [Isovue-300 (61%)] Med 09/12/17 22:30 Active 100 ml IV . DIRECTED Sodium Chloride 0.9% [Normal Saline] 1,000 ml Med 09/12/17 22:30 Active IV ASDIRECTED Sodium Chloride 0.9% [Normal Saline] 100 ml Med 09/12/17 22:30 Active IV ASDIRECTED Medication Orders Sodium Chloride (Normal Saline) 1,000 mls @ 999 mls/hr IV ASDIRECTED ZOEY Last Admin: 09/12/17 22:38 Dose: 999 mls/hr Sodium Chloride (Normal Saline) 100 mls @ 3 mls/sec IV ASDIRECTED ZOEY Last Admin: 09/12/17 23:12 Dose: 3 mls/sec Iopamidol (Isovue-300 (61%)) 100 ml IV . DIRECTED ZOEY Last Admin: 09/12/17 23:12 Dose: 100 ml Labs: Laboratory Tests 09/12/17 09/12/17 09/12/17 Range/Units 22:25 22:25 22:25 WBC 14.5 H (4.5-11.0) K/uL RBC 4.37 (3.30-5.50) M/uL Hgb 13.6 (12.0-15.0) g/dL Hct 40.2 (36.0-48.0) % MCV 92 (80-98) fL MCH 31 (27-31) pg MCHC 34 (32-36) % Plt Count 351 (150-400) K/uL Neut % (Auto) 75 H (36-66) % Lymph % (Auto) 18 L (24-44) % [place] % (Auto) 7 H (2-6) % Eos % (Auto) 1 L (2-4) % Baso % (Auto) 0 (0-1) % PT 11.4 (9.5-12.0) sec INR 1.04 (0.80-1.20) Sodium 136 L (140-148) mmol/L Potassium 3.7 (3.6-5.2) mmol/L Chloride 102 (100-108) mmol/L Carbon Dioxide 26 (21-32) mmol/L Anion Gap 11.7 (5.0-14.0) mmol/L BUN 13 (7-18) mg/dL Creatinine 1.0 (0.6-1.0) mg/dL Est Cr Clr Drug Dosing 47.18 mL/min Estimated GFR (MDRD) 58 L (>60) Glucose 98 (74-106) mg/dL Calcium 9.3 (8.5-10.1) mg/dL Magnesium (1.8-2.4) mg/dL Total Bilirubin 0.3 D (0.2-1.0) mg/dL AST 12 L (15-37) U/L ALT 18 (12-78) U/L Alkaline Phosphatase 88 (46-116) U/L Total Protein 7.3 (6.4-8.2) g/dL Albumin 3.1 L (3.4-5.0) g/dL Globulin 4.2 H (2.3-3.5) g/dL Albumin/Globulin Ratio 0.7 L (1.2-2.2) Amylase (25-115) U/L Lipase (73-393) U/L TSH, Ultra Sensitive (0.358-3.740) uIU/mL Urine Color Urine Appearance Urine pH (4.5-8.0) Ur Specific [place] (1.008-1.030) Urine Protein (NEGATIVE) mg/dL Urine Glucose (UA) (NEGATIVE) mg/dL Urine Ketones (NEGATIVE) mg/dL Urine Occult Blood (NEGATIVE) Urine Nitrite (NEGATIVE) Urine Bilirubin (NEGATIVE) Urine Urobilinogen (NORMAL) mg/dL Ur Leukocyte Esterase (NEGATIVE) Urine RBC (0-5) Urine WBC (0-5) Ur Epithelial Cells Amorphous Sediment Urine Bacteria Urine Mucus 09/12/17 09/12/17 Range/Units 22:25 22:40 WBC (4.5-11.0) K/uL RBC (3.30-5.50) M/uL Hgb (12.0-15.0) g/dL Hct (36.0-48.0) % MCV (80-98) fL MCH (27-31) pg MCHC (32-36) % Plt Count (150-400) K/uL Neut % (Auto) (36-66) % Lymph % (Auto) (24-44) % [place] % (Auto) (2-6) % Eos % (Auto) (2-4) % Baso % (Auto) (0-1) % PT (9.5-12.0) sec INR (0.80-1.20) Sodium (140-148) mmol/L Potassium (3.6-5.2) mmol/L Chloride (100-108) mmol/L Carbon Dioxide (21-32) mmol/L Anion Gap (5.0-14.0) mmol/L BUN (7-18) mg/dL Creatinine (0.6-1.0) mg/dL Est Cr Clr Drug Dosing mL/min Estimated GFR (MDRD) (>60) Glucose (74-106) mg/dL Calcium (8.5-10.1) mg/dL Magnesium 1.9 (1.8-2.4) mg/dL Total Bilirubin (0.2-1.0) mg/dL AST (15-37) U/L ALT (12-78) U/L Alkaline Phosphatase (46-116) U/L Total Protein (6.4-8.2) g/dL Albumin (3.4-5.0) g/dL Globulin (2.3-3.5) g/dL Albumin/Globulin Ratio (1.2-2.2) Amylase 53 (25-115) U/L Lipase 117 (73-393) U/L TSH, Ultra Sensitive 2.240 (0.358-3.740) uIU/mL Urine Color Yellow Urine Appearance Clear Urine pH 5.0 (4.5-8.0) Ur Specific [place] 1.015 (1.008-1.030) Urine Protein Negative (NEGATIVE) mg/dL Urine Glucose (UA) Normal (NEGATIVE) mg/dL Urine Ketones Negative (NEGATIVE) mg/dL Urine Occult Blood Negative (NEGATIVE) Urine Nitrite Negative (NEGATIVE) Urine Bilirubin Negative (NEGATIVE) Urine Urobilinogen Normal (NORMAL) mg/dL Ur Leukocyte Esterase Negative (NEGATIVE) Urine RBC 0-5 (0-5) Urine WBC 0-5 (0-5) Ur Epithelial Cells Few Amorphous Sediment Not seen Urine Bacteria Rare Urine Mucus Not seen Meds: Medications Generic Name Dose Route Start Last Admin Trade Name Freq PRN Reason Stop Dose Admin Sodium Chloride 1,000 mls @ 999 mls/hr 09/12/17 22:30 09/12/17 22:38 Normal Saline IV 999 mls/hr ASDIRECTED ZOEY Administration Sodium Chloride 100 mls @ 3 mls/sec 09/12/17 22:30 09/12/17 23:12 Normal Saline IV 3 mls/sec ASDIRECTED ZOEY Administration Iopamidol 100 ml 09/12/17 22:30 09/12/17 23:12 Isovue-300 (61%) IV 100 ml . DIRECTED ZOEY Administration Discontinued Medications Generic Name Dose Route Start Last Admin Trade Name Freq PRN Reason Stop Dose Admin Hydromorphone HCl 1 mg 09/12/17 22:20 09/12/17 22:45 Dilaudid IVPUSH 09/12/17 22:21 1 mg ONETIME ONE Administration Ondansetron HCl 4 mg 09/12/17 22:22 09/12/17 22:43 Zofran IVPUSH 09/12/17 22:23 4 mg ONETIME ONE Administration Pantoprazole Sodium 40 mg 09/12/17 22:21 09/12/17 22:39 Protonix Iv IVPUSH 09/12/17 22:22 40 mg ONETIME ONE Administration - Re-Assessments/Exams Free Text/Narrative Re-Assessment/Exam: 09/12/17 23:52 labs elevated wbc imaging; CT abdomen pelvis ; impression; tree in bud nodular infiltrate is seen throughout the right lower lobe, likely due to bronchiolitis or pneumonia. discussed with Mrs. Arellano will admit to hospital to evaluate/monitor abdominal pain and wt loss, will treat pneumonia Mrs. Arellano agrees with plan of care. Departure - Departure Time of Disposition: 23:56 Disposition: Admitted As Inpatient 66 Condition: Good Clinical Impression: Abdominal pain, Pneumonia - Discharge Information *PRESCRIPTION DRUG MONITORING PROGRAM REVIEWED*: Not Applicable *COPY OF PRESCRIPTION DRUG MONITORING REPORT IN PATIENT MARLYN: Not Applicable Referrals: Jaye No NP [Primary Care Provider] - Forms: ED Department Discharge - My Orders Last 24 Hours: My Active Orders 09/12/17 22:27 Abdomen Pelvis w Cont [CT] Stat 09/12/17 22:30 Iopamidol [Isovue-300 (61%)] 100 ml IV . DIRECTED Sodium Chloride 0.9% [Normal Saline] 1,000 ml IV ASDIRECTED Sodium Chloride 0.9% [Normal Saline] 100 ml IV ASDIRECTED 09/12/17 22:40 UA W/MICROSCOPIC [URIN] Urgent - Assessment/Plan Last 24 Hours: My Active Orders 09/12/17 22:27 Abdomen Pelvis w Cont [CT] Stat 09/12/17 22:30 Iopamidol [Isovue-300 (61%)] 100 ml IV . DIRECTED Sodium Chloride 0.9% [Normal Saline] 1,000 ml IV ASDIRECTED Sodium Chloride 0.9% [Normal Saline] 100 ml IV ASDIRECTED 09/12/17 22:40 UA W/MICROSCOPIC [URIN] Urgent
[2017-09-13] MEDS ORDERED: cefTRIAXone 1 GM in Sodium Chloride 0.9% 50 ML IV SCH ×2
--- NOTE | 2017-09-13 00:19 | PCM.HP ---
H&P History of Present Illness - General Date of Service: 09/12/17 Admit Problem/Dx: Admission Diagnosis/Problem Admission Diagnosis/Problem Pneumonia Source of Information: Patient History Limitations: Reports: No Limitations - History of Present Illness Initial Comments - Free Text/Narative: abdominal pain; this is a 52 year old female presents to ER with and Son , report acute abdominal pain, rates pain at 11 out of 10. She reports has been having abdominal pain for 2 months with a 25 to 30 pound weight loss. She has been unable to eat due to the pain in abdomen. She felt she was getting worse, she went to see Chiropractor. she was treated with herbal supplement. The list was Pyloristat 2 with breakfast , antiflux one with breakfast, carbonated water 7 oz a day, ultra clear review 2 scoops a day, nancy fly trap extract 6 drops or 2 squeezes a day. Dynanvit F& G 1 scoop, Bone Broth 1 in am, Fermented tobacco 1/8 teaspoon in mouth for 7 minutes, avoid grains, can eat meats and veggies. She was home, took the [place] Fly Trap Extract then began to experience worsen abdominal pain. its was intense unstoppable pain. 08/11/2017; EGD: gastritis, rule out H.Pylori 08/16/2017; CT abdomen-pelvis; mild sigmoid diverticulitis 09/12/17 23:52 labs elevated wbc 14.5 imaging; CT abdomen pelvis ; impression; tree in bud nodular infiltrate is seen throughout the right lower lobe, likely due to bronchiolitis or pneumonia. discussed with Mrs. Arellano will admit to hospital to evaluate/monitor abdominal pain and wt loss, will treat pneumonia Mrs. Arellano agrees with plan of care. Onset of Symptoms: Reports: Today, Sudden (abdominal pain) Duration of Symptoms: Reports: Chronic (abdominal pain for 2 months with wt loss ) Location: Reports: Abdomen Quality: Reports: Ache, Burning, Stabbing Severity: Severe Improves with: Reports: None Worsens with: Reports: Eating Context: Reports: Other (new medication by Chiropractor) Associated Symptoms: Reports: Fever/Chills, Loss of Appetite, Nausea/Vomiting, Weakness abd pain Pain Score (Numeric/FACES): 10 - Related Data Allergies/Adverse Reactions: Allergies Allergy/AdvReac Type Severity Reaction Status Date / Time codeine Allergy Severe Swelling Verified 09/12/17 22:28 alcohol Allergy Vomiting Verified 09/12/17 22:28 Home Medications: Home Meds Omeprazole [priLOSEC OTC] 20 mg PO DAILY 03/20/13 [History] Acyclovir 400 mg PO DAILY PRN 03/23/15 [History] Albuterol [Ventolin HFA] 18 gm IN Q4HR PRN 03/23/15 [History] Mupirocin Oint [Bactroban Oint] 2 percent TOP ASDIRECTED PRN 08/10/17 [History] Ondansetron HCl [Ondansetron] 4 mg PO ASDIRECTED PRN 08/10/17 [History] medroxyPROGESTERone Acetate [Depo-Provera] 1 applic IM Q90D 09/12/17 [History] Past Medical History - Past Health History Medical/Surgical History: Denies Medical/Surgical History Respiratory History: Reports: Asthma, Bronchitis, Recurrent, Other (See Below) Other Respiratory History: 03/06/17 dx pnue Gastrointestinal History: Reports: Gastritis, GERD 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: Psychiatric History: Reports: Anxiety, Depression - Infectious Disease History Infectious Disease History: Reports: Chicken Pox - Past Surgical History GI Surgical History: Reports: Cholecystectomy, Hernia Repair/Other Female Surgical History: Reports: Section Social & Family History - Family History Family Medical History: Noncontributory - Tobacco Use Smoking Status *Q: Current Every Day Smoker Years of Tobacco use: 38 Packs/Tins Daily: 0.7 - Caffeine Use Caffeine Use: Reports: None Other Caffeine Use: occasional mtn dew - Recreational Drug Use Recreational Drug Use: Yes Drug Use in Last 12 Months: Yes Recreational Drug Type: Reports: Marijuana/Hashish - Living Situation & Occupation Living situation: Reports: , with Family H&P Review of Systems - Review of Systems: Review Of Systems: See Below General: Reports: Fever, Chills, Weakness, Fatigue, Decreased Appetite, Weight Loss (25 to 30 pound wt loss) HEENT: Reports: No Symptoms Pulmonary: Reports: Cough, Other (tobacco use ) Cardiovascular: Reports: No Symptoms Gastrointestinal: Reports: Abdominal Pain, Anorexia (wt loss over 2 months; 25 to 30 pounds), Decreased Appetite, Nausea Genitourinary: Reports: No Symptoms Musculoskeletal: Reports: No Symptoms Skin: Reports: No Symptoms Psychiatric: Reports: No Symptoms Neurological: Reports: No Symptoms Hematologic/Lymphatic: Reports: No Symptoms Immunologic: Reports: No Symptoms Exam - Exam Exam: See Below - Vital Signs Vital Signs: Last Vital Signs Temp 36.4 C 09/12/17 22:49 Pulse 79 09/12/17 22:49 Resp 16 09/12/17 22:49 BP 113/78 09/12/17 22:49 Pulse Ox 93 L 09/12/17 22:49 Weight: 44.9 kg - Exam General: Alert, Oriented, Cooperative, Mild Distress, Moderate Distress HEENT: PERRLA, Conjunctiva Clear, EACs Clear, EOMI, Hearing Intact, Mucosa Moist & [place], Nares Patent, Normal Nasal Septum, Posterior Pharynx Clear, Pupils Equal, Pupils Reactive, TMs Clear Neck: Supple, Trachea Midline Lungs: Normal Respiratory Effort, Decreased Breath Sounds, Wheezing (bilateral ) Cardiovascular: Regular Rate, Regular Rhythm, Normal S1, Normal S2 GI/Abdominal Exam: Normal Bowel Sounds, Soft, No Organomegaly, Pelvis Stable, Tender (acutely tender upper abdomen, generalized tenderness) (Female) Exam: Deferred Rectal (Female) Exam: Deferred Back Exam: Normal Inspection, Full Range of Motion, NT Extremities: Normal Inspection, Normal Range of Motion, Non-Tender, No Pedal Edema, Normal Capillary Refill Peripheral Pulses: 2+: Radial (L), Radial (R), Dorsalis Pedis (L), Dorsalis Pedis (R) Skin: Warm, Dry, Intact Neurological: Reflexes Equal Bilateral, Strength Equal Bilateral Neuro Extensive - Mental Status: Alert, Oriented x3, Normal Mood/Affect, Normal Cognition Neuro Extensive - Motor, Sensory, Reflexes: CN II-XII Intact Psychiatric: Alert, Normal Affect, Normal Mood - Patient Data Lab Results Last 24 hrs: Laboratory Results - last 24 hr 09/12/17 09/12/17 09/12/17 Range/Units 22:25 22:25 22:25 WBC 14.5 H (4.5-11.0) K/uL RBC 4.37 (3.30-5.50) M/uL Hgb 13.6 (12.0-15.0) g/dL Hct 40.2 (36.0-48.0) % MCV 92 (80-98) fL MCH 31 (27-31) pg MCHC 34 (32-36) % Plt Count 351 (150-400) K/uL Neut % (Auto) 75 H (36-66) % Lymph % (Auto) 18 L (24-44) % Ray % (Auto) 7 H (2-6) % Eos % (Auto) 1 L (2-4) % Baso % (Auto) 0 (0-1) % PT 11.4 (9.5-12.0) sec INR 1.04 (0.80-1.20) Sodium 136 L (140-148) mmol/L Potassium 3.7 (3.6-5.2) mmol/L Chloride 102 (100-108) mmol/L Carbon Dioxide 26 (21-32) mmol/L Anion Gap 11.7 (5.0-14.0) mmol/L BUN 13 (7-18) mg/dL Creatinine 1.0 (0.6-1.0) mg/dL Est Cr Clr Drug Dosing 47.18 mL/min Estimated GFR (MDRD) 58 L (>60) Glucose 98 (74-106) mg/dL Calcium 9.3 (8.5-10.1) mg/dL Magnesium (1.8-2.4) mg/dL Total Bilirubin 0.3 D (0.2-1.0) mg/dL AST 12 L (15-37) U/L ALT 18 (12-78) U/L Alkaline Phosphatase 88 (46-116) U/L Total Protein 7.3 (6.4-8.2) g/dL Albumin 3.1 L (3.4-5.0) g/dL Globulin 4.2 H (2.3-3.5) g/dL Albumin/Globulin Ratio 0.7 L (1.2-2.2) Amylase (25-115) U/L Lipase (73-393) U/L TSH, Ultra Sensitive (0.358-3.740) uIU/mL Urine Color Urine Appearance Urine pH (4.5-8.0) Ur Specific Maribel (1.008-1.030) Urine Protein (NEGATIVE) mg/dL Urine Glucose (UA) (NEGATIVE) mg/dL Urine Ketones (NEGATIVE) mg/dL Urine Occult Blood (NEGATIVE) Urine Nitrite (NEGATIVE) Urine Bilirubin (NEGATIVE) Urine Urobilinogen (NORMAL) mg/dL Ur Leukocyte Esterase (NEGATIVE) Urine RBC (0-5) Urine WBC (0-5) Ur Epithelial Cells Amorphous Sediment Urine Bacteria Urine Mucus 09/12/17 09/12/17 Range/Units 22:25 22:40 WBC (4.5-11.0) K/uL RBC (3.30-5.50) M/uL Hgb (12.0-15.0) g/dL Hct (36.0-48.0) % MCV (80-98) fL MCH (27-31) pg MCHC (32-36) % Plt Count (150-400) K/uL Neut % (Auto) (36-66) % Lymph % (Auto) (24-44) % Ray % (Auto) (2-6) % Eos % (Auto) (2-4) % Baso % (Auto) (0-1) % PT (9.5-12.0) sec INR (0.80-1.20) Sodium (140-148) mmol/L Potassium (3.6-5.2) mmol/L Chloride (100-108) mmol/L Carbon Dioxide (21-32) mmol/L Anion Gap (5.0-14.0) mmol/L BUN (7-18) mg/dL Creatinine (0.6-1.0) mg/dL Est Cr Clr Drug Dosing mL/min Estimated GFR (MDRD) (>60) Glucose (74-106) mg/dL Calcium (8.5-10.1) mg/dL Magnesium 1.9 (1.8-2.4) mg/dL Total Bilirubin (0.2-1.0) mg/dL AST (15-37) U/L ALT (12-78) U/L Alkaline Phosphatase (46-116) U/L Total Protein (6.4-8.2) g/dL Albumin (3.4-5.0) g/dL Globulin (2.3-3.5) g/dL Albumin/Globulin Ratio (1.2-2.2) Amylase 53 (25-115) U/L Lipase 117 (73-393) U/L TSH, Ultra Sensitive 2.240 (0.358-3.740) uIU/mL Urine Color Yellow Urine Appearance Clear Urine pH 5.0 (4.5-8.0) Ur Specific Maribel 1.015 (1.008-1.030) Urine Protein Negative (NEGATIVE) mg/dL Urine Glucose (UA) Normal (NEGATIVE) mg/dL Urine Ketones Negative (NEGATIVE) mg/dL Urine Occult Blood Negative (NEGATIVE) Urine Nitrite Negative (NEGATIVE) Urine Bilirubin Negative (NEGATIVE) Urine Urobilinogen Normal (NORMAL) mg/dL Ur Leukocyte Esterase Negative (NEGATIVE) Urine RBC 0-5 (0-5) Urine WBC 0-5 (0-5) Ur Epithelial Cells Few Amorphous Sediment Not seen Urine Bacteria Rare Urine Mucus Not seen Result Diagrams: 09/12/17 22:25 09/12/17 22:25 - Problem List (1) Weight loss SNOMED Code(s): 67817569, 137188729 ICD Code: R63.4 - ABNORMAL WEIGHT LOSS Status: Acute Priority: High Current Visit: Yes (2) Weight loss, abnormal SNOMED Code(s): 390145782 ICD Code: R63.4 - ABNORMAL WEIGHT LOSS Status: Acute Priority: High Current Visit: Yes (3) Abdominal pain SNOMED Code(s): 12733658 ICD Code: R10.9 - UNSPECIFIED ABDOMINAL PAIN Status: Acute Priority: High Current Visit: Yes (4) Pneumonia SNOMED Code(s): 964267320 ICD Code: J18.9 - PNEUMONIA, UNSPECIFIED ORGANISM Status: Acute Current Visit: Yes Qualifiers: Pneumonia type: due to unspecified organism Laterality: right Lung location: lower lobe of lung Qualified Code(s): J18.1 - Lobar pneumonia, unspecified organism Problem List Initiated/Reviewed/Updated: Yes Orders Last 24hrs: Active Orders 24 hr Category Date Time Status Patient Status Manage Transfer [TRANSFER] Routine ADT 09/13/17 00:04 Ordered Abdomen Pelvis w Cont [CT] Stat Exams 09/12/17 22:27 Taken UA W/MICROSCOPIC [URIN] Urgent Lab 09/12/17 22:40 Ordered Iopamidol [Isovue-300 (61%)] Med 09/12/17 22:30 Active 100 ml IV . DIRECTED Sodium Chloride 0.9% [Normal Saline] 1,000 ml Med 09/12/17 22:30 Active IV ASDIRECTED Sodium Chloride 0.9% [Normal Saline] 100 ml Med 09/12/17 22:30 Active IV ASDIRECTED Resuscitation Status Routine Resus Stat 09/13/17 00:05 Ordered Medication Orders Sodium Chloride (Normal Saline) 1,000 mls @ 999 mls/hr IV ASDIRECTED [facility] Last Admin: 09/12/17 22:38 Dose: 999 mls/hr Sodium Chloride (Normal Saline) 100 mls @ 3 mls/sec IV ASDIRECTED [facility] Last Admin: 09/12/17 23:12 Dose: 3 mls/sec Iopamidol (Isovue-300 (61%)) 100 ml IV . DIRECTED [facility] Last Admin: 09/12/17 23:12 Dose: 100 ml Assessment/Plan Comment:: ASSESSMENT / PLAN abdominal pain; this is a 52 year old female presents to ER with and Son , report acute abdominal pain, rates pain at 11 out of 10. She reports has been having abdominal pain for 2 months with a 25 to 30 pound weight loss. She has been unable to eat due to the pain in abdomen. She felt she was getting worse, she went to see Chiropractor. she was treated with herbal supplement. The list was Pyloristat 2 with breakfast , antiflux one with breakfast, carbonated water 7 oz a day, ultra clear review 2 scoops a day, nancy fly trap extract 6 drops or 2 squeezes a day. Dynanvit F& G 1 scoop, Bone Broth 1 in am, Fermented tobacco 1/8 teaspoon in mouth for 7 minutes, avoid grains, can eat meats and veggies. She was home, took the [place] Fly Trap Extract then began to experience worsen abdominal pain. its was intense unstoppable pain. 08/11/2017; EGD: gastritis, rule out H.Pylori 08/16/2017; CT abdomen-pelvis; mild sigmoid diverticulitis 09/12/17 23:52 labs elevated wbc 14.5 imaging; CT abdomen pelvis ; impression; tree in bud nodular infiltrate is seen throughout the right lower lobe, likely due to bronchiolitis or pneumonia. discussed with Mrs. Arellano will admit to hospital to evaluate/monitor abdominal pain and wt loss, will treat pneumonia Mrs. Arellano agrees with plan of care. Right lower lobe Pneumonia -Admit to [address] [place] [address] for further monitoring -IV Fluids for rehydration NS at 125 mL per hour -IV Antibiotic: Rocephin 1 g IV every 24 hours -IV antibiotic: Zithromax 500 mg IV every 24 hours -IV Solu-Medrol 62.5 mg IV every 6 hrs -albuterol nebulizer every 4 hours as needed for wheezing and cough -Duo nebu ; prn nebulize every 6 hours oxygen to keep -Advise to notify nurses of any pain or other symptoms -am labs CBC, BMP Chronic Abdominal Pain with weight loss -hx of gastritis and diverticulitis, CT abdomen-pelvis does not show any acute abdomen -08/11/17 EGD gastritis -08/16/17 CT abdomen-pelvis ; mild sigmoid diverticulitis. -Protonix 40mg IV every 12 hours -monitor for abdominal pain. Maintenance issues -Orders home meds: home meds order -Nutrition: regular diet -Whitten catheter not indicated at this time -DVT: Lovenox 30 mg subcut -PPI: IV Protonix 40mg BID -tobacco use; Nicotine patch 21mcg CODE STATUS: FULL CODE Admission status: Admit to [address] [place] [address] Admission justification. This patient will be admitted for inpatient services and is medically appropriate meeting medical necessity for inpatient admission as outlined in my documentation. I reasonably expect the patient will require inpatient services that span. Time over 2 midnights. I reasonably expect this patient to be discharged or transferred within 96 hours after admission to the critical [facility]. Disposition: home Primary care provider: Su Lopez NP Surgeon: Dr. Rich Hospitalist: Dr. Anders
[2017-09-13] MEDS ORDERED: Albuterol 0.083% 2.5 MG/3 ML Neb Soln NEB PRN (00:29)
[2017-09-13] MEDS ORDERED: Docusate Sodium 100 MG Cap PO PRN (00:29)
[2017-09-13] MEDS ORDERED: oxyCODONE 5 MG Tab PO PRN (00:29)
[2017-09-13] MEDS ORDERED: Acyclovir 200 MG Cap PO PRN (00:29)
[2017-09-13] MEDS ORDERED: Morphine 2 MG/ML Syringe IVPUSH PRN (00:29)
[2017-09-13] MEDS ORDERED: Albuterol/Ipratropium 3.0-0.5 MG/3 ML Neb Soln NEB PRN (00:29)
[2017-09-13] MEDS ORDERED: Ondansetron 4 MG/2 ML SDV IV PRN (00:29)
[2017-09-13] MEDS ORDERED: Acetaminophen 325 MG Tab PO PRN (00:29)
[2017-09-13] MEDS ORDERED: LORazepam 2 MG/ML SDV IV PRN (00:29)
[2017-09-13] MEDS: Sodium Chloride 0.9% 1,000 ML IV SCH ×2 (00:37→10:24)
[2017-09-13] MEDS: methylPREDNISolone Sodium Succinate 125 MG/2 ML SDV IVPUSH SCH ×3 (00:57→12:23)
[2017-09-13] MEDS ORDERED: Azithromycin 500 MG in Sodium Chloride 0.9% 250 ML IV SCH (01:00)
[2017-09-13] MEDS: Nicotine 21 MG/24 Hr Patch TRDERM SCH ×2 (01:00→08:39)
[2017-09-13 07:03] VITALS: BP 104/62
[2017-09-13] MEDS ORDERED: Pantoprazole 40 MG Vial IV SCH ×2 (09:00)
[2017-09-13] MEDS ORDERED: Enoxaparin 30 MG/0.3 ML Syringe SUBCUT SCH (09:00)
--- NOTE | 2017-09-13 12:49 | PCM.DCSUM1 ---
Discharge Summary - Hospital Course Brief History: Ms. Arellano is a 52-year-old woman who was admitted through the emergency department with abdominal pain and right lung infiltrate consistent with pneumonia. Diagnosis: Stroke: No - Discharge Data Discharge Date: 09/13/17 Discharge Disposition: Home, Self-Care 01 Condition: Fair - Discharge Diagnosis/Problem(s) (1) Abdominal pain SNOMED Code(s): 36528467 ICD Code: R10.9 - UNSPECIFIED ABDOMINAL PAIN Status: Acute Priority: High Current Visit: Yes (2) Pneumonia SNOMED Code(s): 895009677 ICD Code: J18.9 - PNEUMONIA, UNSPECIFIED ORGANISM Status: Acute Current Visit: Yes Qualifiers: Pneumonia type: due to unspecified organism Laterality: right Lung location: lower lobe of lung Qualified Code(s): J18.1 - Lobar pneumonia, unspecified organism - Patient Summary/Data Hospital Course: This is a 52 year old female presents to ER with and Son, report acute abdominal pain, rates pain at 11 out of 10. She reports has been having abdominal pain for 2 months with a 25 to 30 pound weight loss. She has been unable to eat due to the pain in abdomen. Evaluation has included an EGD which did document gastritis as well as 2 CT scans which show no significant abnormalities to explain her ongoing pain. CT scan obtained in the emergency department did show evidence of a right lung infiltrate and she was admitted for IV antibiotic therapy. White blood cell count was modestly elevated when seen in the emergency department. On admission blood cultures were obtained and she was started on IV antibiotic therapy with azithromycin and Rocephin. IV fluids were given for hydration. By the following morning she was feeling markedly improved and denied significant respiratory symptoms and also reported total resolution of her abdominal pain. I did recommend that she stay for at least one additional day of IV antibiotic therapy which she refused. She will be discharged to home on levofloxacin 750 mg daily for an additional 5 days. She also will be placed on probiotic therapy with lactobacillus twice daily. Activity will be as tolerated and she will resume her usual diet. She notes significant respiratory symptoms shortness of breath worsening cough or fever she will return to the emergency department for further evaluation. Follow-up appointment will be scheduled with her primary care provider within one week. Chest x-ray should be obtained at the time of follow-up of appointment and followed to resolution of the infiltrate. If infiltrate persists consider CT scan of the chest for further evaluation especially in light of the patient's long-standing smoking history. - Patient Instructions Diet: Usual Diet as Tolerated Activity: As Tolerated Other/Special Instructions: Please schedule follow-up appointment with primary care provider within one week. Chest x-ray should be obtained at the time of follow-up appointment and followed until resolution of infiltrate. - Discharge Plan *PRESCRIPTION DRUG MONITORING PROGRAM REVIEWED*: Not Applicable *COPY OF PRESCRIPTION DRUG MONITORING REPORT IN PATIENT MARLYN: Not Applicable Prescriptions/Med Rec: Lactobacillus Acidophilus [Acidophilus Lactobacilli] 1 each PO BID #60 capsule Levofloxacin [Levaquin] 750 mg PO DAILY #5 tab Home Medications: Home Meds Omeprazole [priLOSEC OTC] 20 mg PO DAILY 03/20/13 [History] Acyclovir 400 mg PO DAILY PRN 03/23/15 [History] Albuterol [Ventolin HFA] 18 gm IN Q4HR PRN 03/23/15 [History] Mupirocin Oint [Bactroban Oint] 2 percent TOP ASDIRECTED PRN 08/10/17 [History] Ondansetron HCl [Ondansetron] 4 mg PO ASDIRECTED PRN 08/10/17 [History] medroxyPROGESTERone Acetate [Depo-Provera] 1 applic IM Q90D 09/12/17 [History] ALPRAZolam [Xanax] 0.25 mg PO BID PRN 09/13/17 [History] Lactobacillus Acidophilus [Acidophilus Lactobacilli] 1 each PO BID #60 capsule 09/13/17 [Rx] Levofloxacin [Levaquin] 750 mg PO DAILY #5 tab 09/13/17 [Rx] Referrals: Jaye No NP [Primary Care Provider] - - Discharge Summary/Plan Comment DC Time >30 min.: No - Patient Data Vitals - Most Recent: Last Vital Signs Temp 97.7 F 09/13/17 07:01 Pulse 81 09/13/17 07:01 Resp 18 09/13/17 07:01 BP 104/62 09/13/17 07:01 Pulse Ox 93 L 09/13/17 07:01 Weight - Most Recent: 98 lb 5.995 oz I&O - Last 24 hours: Intake & Output 0709/13/17 09/13/17 22:59 06:59 14:59 Intake Total 896 Output Total 125 Balance 896 -125 Lab Results - Last 24 hrs: Laboratory Results - last 24 hr 09/12/17 09/12/17 09/12/17 Range/Units 22:25 22:25 22:25 WBC 14.5 H (4.5-11.0) K/uL RBC 4.37 (3.30-5.50) M/uL Hgb 13.6 (12.0-15.0) g/dL Hct 40.2 (36.0-48.0) % MCV 92 (80-98) fL MCH 31 (27-31) pg MCHC 34 (32-36) % Plt Count 351 (150-400) K/uL Neut % (Auto) 75 H (36-66) % Lymph % (Auto) 18 L (24-44) % Gray % (Auto) 7 H (2-6) % Eos % (Auto) 1 L (2-4) % Baso % (Auto) 0 (0-1) % PT 11.4 (9.5-12.0) sec INR 1.04 (0.80-1.20) Sodium 136 L (140-148) mmol/L Potassium 3.7 (3.6-5.2) mmol/L Chloride 102 (100-108) mmol/L Carbon Dioxide 26 (21-32) mmol/L Anion Gap 11.7 (5.0-14.0) mmol/L BUN 13 (7-18) mg/dL Creatinine 1.0 (0.6-1.0) mg/dL Est Cr Clr Drug Dosing 47.18 mL/min Estimated GFR (MDRD) 58 L (>60) Glucose 98 (74-106) mg/dL Lactic Acid (0.4-2.0) mmol/L Calcium 9.3 (8.5-10.1) mg/dL Magnesium (1.8-2.4) mg/dL Total Bilirubin 0.3 D (0.2-1.0) mg/dL AST 12 L (15-37) U/L ALT 18 (12-78) U/L Alkaline Phosphatase 88 (46-116) U/L Total Protein 7.3 (6.4-8.2) g/dL Albumin 3.1 L (3.4-5.0) g/dL Globulin 4.2 H (2.3-3.5) g/dL Albumin/Globulin Ratio 0.7 L (1.2-2.2) Amylase (25-115) U/L Lipase (73-393) U/L TSH, Ultra Sensitive (0.358-3.740) uIU/mL Urine Color Urine Appearance Urine pH (4.5-8.0) Ur Specific [place] (1.008-1.030) Urine Protein (NEGATIVE) mg/dL Urine Glucose (UA) (NEGATIVE) mg/dL Urine Ketones (NEGATIVE) mg/dL Urine Occult Blood (NEGATIVE) Urine Nitrite (NEGATIVE) Urine Bilirubin (NEGATIVE) Urine Urobilinogen (NORMAL) mg/dL Ur Leukocyte Esterase (NEGATIVE) Urine RBC (0-5) Urine WBC (0-5) Ur Epithelial Cells Amorphous Sediment Urine Bacteria Urine Mucus 09/12/17 09/12/17 09/13/17 Range/Units 22:25 22:40 04:20 WBC (4.5-11.0) K/uL RBC (3.30-5.50) M/uL Hgb (12.0-15.0) g/dL Hct (36.0-48.0) % MCV (80-98) fL MCH (27-31) pg MCHC (32-36) % Plt Count (150-400) K/uL Neut % (Auto) (36-66) % Lymph % (Auto) (24-44) % Gray % (Auto) (2-6) % Eos % (Auto) (2-4) % Baso % (Auto) (0-1) % PT (9.5-12.0) sec INR (0.80-1.20) Sodium (140-148) mmol/L Potassium (3.6-5.2) mmol/L Chloride (100-108) mmol/L Carbon Dioxide (21-32) mmol/L Anion Gap (5.0-14.0) mmol/L BUN (7-18) mg/dL Creatinine (0.6-1.0) mg/dL Est Cr Clr Drug Dosing mL/min Estimated GFR (MDRD) (>60) Glucose (74-106) mg/dL Lactic Acid 1.5 (0.4-2.0) mmol/L Calcium (8.5-10.1) mg/dL Magnesium 1.9 (1.8-2.4) mg/dL Total Bilirubin (0.2-1.0) mg/dL AST (15-37) U/L ALT (12-78) U/L Alkaline Phosphatase (46-116) U/L Total Protein (6.4-8.2) g/dL Albumin (3.4-5.0) g/dL Globulin (2.3-3.5) g/dL Albumin/Globulin Ratio (1.2-2.2) Amylase 53 (25-115) U/L Lipase 117 (73-393) U/L TSH, Ultra Sensitive 2.240 (0.358-3.740) uIU/mL Urine Color Yellow Urine Appearance Clear Urine pH 5.0 (4.5-8.0) Ur Specific [place] 1.015 (1.008-1.030) Urine Protein Negative (NEGATIVE) mg/dL Urine Glucose (UA) Normal (NEGATIVE) mg/dL Urine Ketones Negative (NEGATIVE) mg/dL Urine Occult Blood Negative (NEGATIVE) Urine Nitrite Negative (NEGATIVE) Urine Bilirubin Negative (NEGATIVE) Urine Urobilinogen Normal (NORMAL) mg/dL Ur Leukocyte Esterase Negative (NEGATIVE) Urine RBC 0-5 (0-5) Urine WBC 0-5 (0-5) Ur Epithelial Cells Few Amorphous Sediment Not seen Urine Bacteria Rare Urine Mucus Not seen 09/13/17 09/13/17 Range/Units 04:20 04:20 WBC 11.7 H (4.5-11.0) K/uL RBC 4.28 (3.30-5.50) M/uL Hgb 13.4 (12.0-15.0) g/dL Hct 40.0 (36.0-48.0) % MCV 94 (80-98) fL MCH 31 (27-31) pg MCHC 34 (32-36) % Plt Count 316 (150-400) K/uL Neut % (Auto) 91 H (36-66) % Lymph % (Auto) 7 L (24-44) % Gray % (Auto) 1 L (2-6) % Eos % (Auto) 0 L (2-4) % Baso % (Auto) 0 (0-1) % PT (9.5-12.0) sec INR (0.80-1.20) Sodium 137 L (140-148) mmol/L Potassium 4.5 (3.6-5.2) mmol/L Chloride 105 (100-108) mmol/L Carbon Dioxide 24 (21-32) mmol/L Anion Gap 12.5 (5.0-14.0) mmol/L BUN 12 (7-18) mg/dL Creatinine 1.0 (0.6-1.0) mg/dL Est Cr Clr Drug Dosing 46.88 mL/min Estimated GFR (MDRD) 58 L (>60) Glucose 128 H (74-106) mg/dL Lactic Acid (0.4-2.0) mmol/L Calcium 8.7 (8.5-10.1) mg/dL Magnesium (1.8-2.4) mg/dL Total Bilirubin (0.2-1.0) mg/dL AST (15-37) U/L ALT (12-78) U/L Alkaline Phosphatase (46-116) U/L Total Protein (6.4-8.2) g/dL Albumin (3.4-5.0) g/dL Globulin (2.3-3.5) g/dL Albumin/Globulin Ratio (1.2-2.2) Amylase (25-115) U/L Lipase (73-393) U/L TSH, Ultra Sensitive (0.358-3.740) uIU/mL Urine Color Urine Appearance Urine pH (4.5-8.0) Ur Specific [place] (1.008-1.030) Urine Protein (NEGATIVE) mg/dL Urine Glucose (UA) (NEGATIVE) mg/dL Urine Ketones (NEGATIVE) mg/dL Urine Occult Blood (NEGATIVE) Urine Nitrite (NEGATIVE) Urine Bilirubin (NEGATIVE) Urine Urobilinogen (NORMAL) mg/dL Ur Leukocyte Esterase (NEGATIVE) Urine RBC (0-5) Urine WBC (0-5) Ur Epithelial Cells Amorphous Sediment Urine Bacteria Urine Mucus Med Orders - Current: Current Medications Acetaminophen (Tylenol) 650 mg PO Q4H PRN PRN Reason: Pain (Mild 1-3)/fever Acyclovir (Zovirax) 400 mg PO DAILY PRN PRN Reason: sores Albuterol (Proventil Neb Soln) 2.5 mg NEB Q4H PRN PRN Reason: Shortness Of Breath/wheezing Albuterol/Ipratropium (Duoneb 3.0-0.5 Mg/3 Ml) 3 ml NEB QID PRN PRN Reason: Shortness Of Breath/wheezing Docusate Sodium (Colace) 100 mg PO BID PRN PRN Reason: Constipation Enoxaparin Sodium (Lovenox) 30 mg SUBCUT DAILY [facility] Last Admin: 09/13/17 08:22 Dose: 30 mg Azithromycin 500 mg/ Sodium (Chloride) 250 mls @ 250 mls/hr IV Q24H [facility] Last Admin: 09/13/17 01:36 Dose: 250 mls/hr Ceftriaxone Sodium 1 gm/ (Sodium Chloride) 50 mls @ 100 mls/hr IV Q24H [facility] Last Admin: 09/13/17 01:00 Dose: 100 mls/hr Sodium Chloride (Normal Saline) 1,000 mls @ 125 mls/hr IV ASDIRECTED [facility] Last Admin: 09/13/17 10:24 Dose: 125 mls/hr Lorazepam (Ativan) 1 mg IV Q6H PRN PRN Reason: Nausea/Vomiting Last Admin: 09/13/17 02:05 Dose: 1 mg Methylprednisolone Sodium Succinate (Solu-Medrol) 62.5 mg IVPUSH Q6H [facility] Last Admin: 09/13/17 12:23 Dose: 62.5 mg Morphine Sulfate (Morphine) 2 mg IVPUSH Q2H PRN PRN Reason: Pain (severe 7-10) Nicotine (Habitrol) 21 mg TRDERM DAILY [facility] Last Admin: 09/13/17 08:39 Dose: Not Given Ondansetron HCl (Zofran) 4 mg IV Q4H PRN PRN Reason: Nausea/Vomiting Oxycodone HCl (Oxycodone) 5 mg PO Q4H PRN PRN Reason: Pain (moderate 4-6) Pantoprazole Sodium (Protonix Iv) 40 mg IV Q12H [facility] Last Admin: 09/13/17 08:22 Dose: 40 mg Discontinued Medications Hydromorphone HCl (Dilaudid) 1 mg IVPUSH ONETIME ONE Stop: 09/12/17 22:21 Last Admin: 09/12/17 22:45 Dose: 1 mg Sodium Chloride (Normal Saline) 1,000 mls @ 999 mls/hr IV ASDIRECTED [facility] Last Admin: 09/12/17 22:38 Dose: 999 mls/hr Sodium Chloride (Normal Saline) 100 mls @ 3 mls/sec IV ASDIRECTED [facility] Last Admin: 09/12/17 23:12 Dose: 3 mls/sec Iopamidol (Isovue-300 (61%)) 100 ml IV . DIRECTED [facility] Stop: 09/13/17 00:29 Last Admin: 09/12/17 23:12 Dose: 100 ml Ondansetron HCl (Zofran) 4 mg IVPUSH ONETIME ONE Stop: 09/12/17 22:23 Last Admin: 09/12/17 22:43 Dose: 4 mg Pantoprazole Sodium (Protonix Iv) 40 mg IVPUSH ONETIME ONE Stop: 09/12/17 22:22 Last Admin: 09/12/17 22:39 Dose: 40 mg Pantoprazole Sodium (Protonix Iv) 40 mg IV Q12H [facility] Last Admin: 09/13/17 02:08 Dose: Not Given - Exam General: Reports: Alert, Oriented, Cooperative, No Acute Distress Lungs: Reports: Clear to Auscultation, Normal Respiratory Effort Cardiovascular: Reports: Regular Rate, Regular Rhythm, No Murmurs GI/Abdominal Exam: Soft, Non-Tender, No Organomegaly, No Distention Back Exam: Reports: Normal Inspection, Full Range of Motion
== END 2017-09-13 13:05 | disposition home or self-care (01) | DRG 195 ==
LOC: JP.ED 20:33 → JP.MS 09-13 00:04
PROVIDERS: ADMIT Hospitalist; ATTEND Hospitalist
DX: J18.1 Lobar pneumonia, unspecified organism (principal); R10.9 Unspecified abdominal pain; F17.210 Nicotine dependence, cigarettes, uncomplicated; R63.4 Abnormal weight loss; J45.909 Unspecified asthma, uncomplicated; K21.9 Gastro-esophageal reflux disease without esophagitis; Z88.5 Allergy status to narcotic agent; Z91.048 Other nonmedicinal substance allergy status; Z87.19 Personal history of other diseases of the digestive system
CPT/HCPCS: 36415; 74177; 80048; 80053; 81001; 82150; 83605; 83690; 83735; 84443; 85025; 85610; 96361; 96374; 96375; 99285-25; C9113; J0456; J0696; J1170; J1650; J2060; J2405; J2930; J7030; J7050; Q9967

== ENCOUNTER 2017-09-13 16:22 | Emergency (ER) | payer SELFPAY ==
[2017-09-13] MEDS ORDERED: Promethazine 25 MG/ML SDV IM ONE (18:10)
[2017-09-13] MEDS ORDERED: Aluminum Hydroxide/Magnesium Hydroxide/Simethicone Susp 30 ML Cup PO ONE (18:14)
[2017-09-13] MEDS ORDERED: Acetaminophen/HYDROcodone 325-5 MG Tab PO ONE (18:14)
--- NOTE | 2017-09-13 18:20 | EDM.PDOC ---
ED HPI GENERAL MEDICAL PROBLEM - General Chief Complaint: General Stated Complaint: PNEUMONIA/GASTRITIS GETTING WORSE Time Seen by Provider: 09/13/17 18:05 Source of Information: Reports: Patient, Old Records, RN History Limitations: Reports: No Limitations - History of Present Illness INITIAL COMMENTS - FREE TEXT/NARRATIVE: 52 yo female presents with a main complaint of abdominal pain. Was just discharged from here this morning after a short admission for presumed pneumonia and gastritis. When she departed this morning she reportedly had no abdominal pain and no SOB. She states she was home for about 40 min and started feeling worse. Has chronic anxiety and has not taken anything for this. Has some nausea without vomiting. No change in bowels. Denies any respiratory sx's, is a smoker. Is crying in the ER. Has Zofran at home, but the pharmacist told her not to take it due to a drug interaction with her antibiotic. Onset: Today Onset Date: 09/13/17 Onset Time: 11:00 Duration: Hour(s):, Getting Worse Location: Reports: Abdomen Quality: Reports: Ache Severity: Moderate Improves with: Reports: None Worsens with: Reports: Other (? time) Context: Reports: Other (Had gastritis documented per EGD while in the hospital. ) Associated Symptoms: Reports: Nausea/Vomiting (no vomiting.). 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 (see below) (none) ABDOMEN Pain Score (Numeric/FACES): 8 - Related Data Allergies Allergy/AdvReac Type Severity Reaction Status Date / Time codeine Allergy Severe Swelling Verified 09/13/17 17:42 alcohol Allergy Vomiting Verified 09/13/17 17:42 Home Meds: Home Meds Omeprazole [priLOSEC OTC] 20 mg PO DAILY 03/20/13 [History] Acyclovir 400 mg PO DAILY PRN 03/23/15 [History] Albuterol [Ventolin HFA] 18 gm IN Q4HR PRN 03/23/15 [History] Mupirocin Oint [Bactroban Oint] 2 percent TOP ASDIRECTED PRN 08/10/17 [History] Ondansetron HCl [Ondansetron] 4 mg PO ASDIRECTED PRN 08/10/17 [History] medroxyPROGESTERone Acetate [Depo-Provera] 1 applic IM Q90D 09/12/17 [History] ALPRAZolam [Xanax] 0.25 mg PO BID PRN 09/13/17 [History] Lactobacillus Acidophilus [Acidophilus Lactobacilli] 1 each PO BID #60 capsule 09/13/17 [Rx] Levofloxacin [Levaquin] 750 mg PO DAILY #5 tab 09/13/17 [Rx] Past Medical History - Past Health History Medical/Surgical History: Denies Medical/Surgical History Respiratory History: Reports: Asthma, Bronchitis, Recurrent, Other (See Below) Other Respiratory History: 03/06/17 dx pnue Gastrointestinal History: Reports: Gastritis, GERD RIVER PILOT History: Reports: Psychiatric History: Reports: Anxiety, Depression - Infectious Disease History Infectious Disease History: Reports: Chicken Pox - Past Surgical History GI Surgical History: Reports: Cholecystectomy, Hernia Repair/Other Female Surgical History: Reports: Section Social & Family History - Family History Family Medical History: Noncontributory - Tobacco Use Smoking Status *Q: Current Every Day Smoker Years of Tobacco use: 30 Packs/Tins Daily: 0.5 - Caffeine Use Caffeine Use: Reports: None Other Caffeine Use: occasional mtn dew - Recreational Drug Use Recreational Drug Use: Yes Recreational Drug Type: Reports: Marijuana/Hashish Recreational Drug Use Frequency: Rarely - Living Situation & Occupation Living situation: Reports: , with Family ED ROS GENERAL - Review of Systems Review Of Systems: See Below Constitutional: Reports: No Symptoms HEENT: Reports: No Symptoms Respiratory: Reports: No Symptoms Cardiovascular: Reports: No Symptoms GI/Abdominal: Reports: Abdominal Pain, Nausea. Denies: Anorexia, Black Stool, Bloody Stool, Constipation, Diarrhea, Distension, Flatus, Hematemesis, Hematochezia, Melena, Vomiting : Reports: No Symptoms Musculoskeletal: Reports: No Symptoms Skin: Reports: No Symptoms Neurological: Reports: No Symptoms ED EXAM, GENERAL - Physical Exam Exam: See Below Exam Limited By: No Limitations General Appearance: Alert, WD/WN, No Apparent Distress Eye Exam: Bilateral Eye: EOMI, Normal Inspection Ears: Normal External Exam, Normal Canal, Hearing Grossly Normal Ear Exam: Bilateral Ear: Auricle Normal, Canal Normal Nose: Normal Inspection, Normal Mucosa, No Blood Throat/Mouth: Normal Inspection, Normal Lips, Normal Oropharynx, Normal Voice, No Airway Compromise Head: Atraumatic, Normocephalic Neck: Normal Inspection, Supple Respiratory/Chest: No Respiratory Distress, Lungs Clear, Normal Breath Sounds, No Accessory Muscle Use Cardiovascular: Regular Rate, Rhythm, No Edema GI/Abdominal: Soft, Non-Tender, No Distention, Abnormal Bowel Sounds (increased) Back Exam: Normal Inspection. No: CVA Tenderness (R), CVA Tenderness (L) Extremities: Normal Inspection, Normal Range of Motion, Non-Tender, No Pedal Edema Neurological: Alert, Oriented, CN II-XII Intact, Normal Cognition, No Motor/ Sensory Deficits Psychiatric: Normal Affect, Normal Mood Skin Exam: Warm, Dry, Intact, Normal Color, No Rash Lymphatic: No Adenopathy Course - Vital Signs Text/Narrative:: Feeling much better after the Promethazine. Last Recorded V/S: Last Vital Signs Temp 36.6 C 09/13/17 17:13 Pulse 89 09/13/17 17:13 Resp 16 09/13/17 17:13 BP 131/74 09/13/17 18:44 Pulse Ox 93 L 09/13/17 17:13 - Orders/Labs/Meds Meds: Medications Discontinued Medications Generic Name Dose Route Start Last Admin Trade Name Sally PRN Reason Stop Dose Admin Hydrocodone Bitart/Acetaminophen 1 tab 09/13/17 18:14 09/13/17 18:48 [place] 325-5 Mg PO 09/13/17 18:15 Not Given ONETIME ONE Al Hydroxide/Mg Hydroxide 30 ml 09/13/17 18:14 09/13/17 18:44 Mag-Al Plus PO 09/13/17 18:15 30 ml ONETIME ONE Administration Dicyclomine HCl 20 mg 09/13/17 18:22 09/13/17 18:44 Bentyl PO 09/13/17 18:23 20 mg ONETIME ONE Administration Promethazine HCl 25 mg 09/13/17 18:10 09/13/17 18:46 Phenergan IM 09/13/17 18:11 25 mg ONETIME ONE Administration Departure - Departure Time of Disposition: 19:23 Disposition: Home, Self-Care 01 Condition: Good Clinical Impression: Anxiety, Nausea - Discharge Information Referrals: PCP,None [Primary Care Provider] - Forms: ED Department Discharge
[2017-09-13] MEDS ORDERED: Dicyclomine 10 MG Cap PO ONE (18:22)
[2017-09-13 18:45] VITALS: BP 131/74
== END 2017-09-13 19:36 | disposition home or self-care (01) ==
LOC: JP.ED 16:22
DX: F41.9 Anxiety disorder, unspecified (principal); R11.0 Nausea; F17.210 Nicotine dependence, cigarettes, uncomplicated; Z88.5 Allergy status to narcotic agent; Z79.899 Other long term (current) drug therapy
CPT/HCPCS: 96372; 99284; A9270; J2550

== ENCOUNTER 2017-09-17 07:12 | Emergency (ER) | payer SELFPAY ==
[2017-09-17] MEDS ORDERED: Ondansetron 4 MG/2 ML SDV IVPUSH ONE (07:50)
[2017-09-17] MEDS ORDERED: LORazepam 2 MG/ML SDV IVPUSH ONE (07:51)
--- NOTE | 2017-09-17 07:57 | EDM.PDOC ---
ED HPI GENERAL MEDICAL PROBLEM - General Chief Complaint: Respiratory Problem Stated Complaint: CHEST PRESSURE CAN'T BREATH Time Seen by Provider: 09/17/17 07:52 Source of Information: Reports: Patient History Limitations: Reports: No Limitations - History of Present Illness INITIAL COMMENTS - FREE TEXT/NARRATIVE: pt has been home for 2 days from being hospitalized for gastritis and pneumonia. She went home before the Dr wanted her to go and she has felt poorly since she was home. She is having heaviness in her chest and she is feeling sob. She is nauseated and she is wretching. She is extremely anxious. Onset: Gradual, Other ( She has not done well since she has been at home. ) Duration: Day(s): Location: Reports: Chest, Abdomen, Other (pt is still nauseated and she is having loose stools but only 1-2 per day. ) Quality: Reports: Pressure Associated Symptoms: Reports: Chest Pain, Cough, Weakness - Related Data Allergies Allergy/AdvReac Type Severity Reaction Status Date / Time codeine Allergy Severe Swelling Verified 09/17/17 07:28 alcohol Allergy Vomiting Verified 09/17/17 07:28 Home Meds: Home Meds Omeprazole [priLOSEC OTC] 20 mg PO DAILY 03/20/13 [History] Acyclovir 400 mg PO BID PRN 03/23/15 [History] Albuterol [Ventolin HFA] 18 gm IN Q4HR PRN 03/23/15 [History] Mupirocin Oint [Bactroban Oint] 2 percent TOP ASDIRECTED PRN 08/10/17 [History] Ondansetron HCl [Ondansetron] 4 mg PO ASDIRECTED PRN 08/10/17 [History] medroxyPROGESTERone Acetate [Depo-Provera] 1 applic IM Q90D 09/12/17 [History] ALPRAZolam [Xanax] 0.25 mg PO BID PRN 09/13/17 [History] Lactobacillus Acidophilus [Acidophilus Lactobacilli] 1 each PO BID #60 capsule 09/13/17 [Rx] Levofloxacin [Levaquin] 750 mg PO DAILY #5 tab 09/13/17 [Rx] Promethazine [Phenadoz] 25 mg RC TID PRN #7 supp 09/13/17 [Rx] Past Medical History - Past Health History Medical/Surgical History: Denies Medical/Surgical History Respiratory History: Reports: Asthma, Bronchitis, Recurrent, Pneumonia, Recurrent, Other (See Below) Other Respiratory History: 03/06/17 dx pneumonia Gastrointestinal History: Reports: Gastritis, GERD [employer] IN[employer] History: Reports: Psychiatric History: Reports: Anxiety, Depression - Infectious Disease History Infectious Disease History: Reports: Chicken Pox - Past Surgical History GI Surgical History: Reports: Cholecystectomy, Hernia Repair/Other Female Surgical History: Reports: Section Social & Family History - Family History Family Medical History: Noncontributory - Tobacco Use Smoking Status *Q: Current Every Day Smoker Years of Tobacco use: 35 Packs/Tins Daily: 0.5 - Caffeine Use Caffeine Use: Reports: None Other Caffeine Use: occasional mtn dew - Recreational Drug Use Recreational Drug Use: No Recreational Drug Use Frequency: Rarely - Living Situation & Occupation Living situation: Reports: , with Family ED ROS GENERAL - Review of Systems Review Of Systems: See Below Constitutional: Reports: Malaise, Weakness, Decreased Appetite HEENT: Reports: No Symptoms Respiratory: Reports: Shortness of Breath, Other (heaviness in the chest) Cardiovascular: Reports: No Symptoms Endocrine: Reports: No Symptoms GI/Abdominal: Reports: Diarrhea, Nausea, Vomiting : Reports: No Symptoms Musculoskeletal: Reports: No Symptoms Skin: Reports: No Symptoms ED EXAM, GENERAL - Physical Exam Exam: See Below Free Text/Narrative:: pt arrived stating she was wretchng and vomiting. She had one loose stool this am. She has some heavness or tightness in her chest. She appeared very anxious. Exam Limited By: No Limitations General Appearance: Alert, Anxious, Mild Distress Ears: Normal TMs Nose: Normal Inspection Throat/Mouth: Normal Inspection Head: Atraumatic Neck: Normal Inspection Respiratory/Chest: No Respiratory Distress, Other (o2 sats are in the low 90s. ) Cardiovascular: Regular Rate, Rhythm GI/Abdominal: Soft, Non-Tender (Female) Exam: Deferred Rectal (Female) Exam: Deferred Extremities: Normal Inspection Neurological: Alert, Oriented, Normal Cognition Psychiatric: Normal Affect Course - Vital Signs Last Recorded V/S: Last Vital Signs Temp 35.3 C 09/17/17 07:32 Pulse 78 09/17/17 08:51 Resp 12 09/17/17 08:51 BP 97/60 09/17/17 08:51 Pulse Ox 97 07/15/18 08:51 - Orders/Labs/Meds Orders: Active Orders 24 hr Category Date Time Status Chest 2V [CR] Stat Exams 09/17/17 07:50 Taken UA W/MICROSCOPIC [URIN] Urgent Lab 09/17/17 07:50 Ordered LORazepam [Ativan] Med 09/17/17 10:22 Once 0.5 mg PO ONETIME ONE Sodium Chloride 0.9% [Normal Saline] 1,000 ml Med 09/17/17 08:00 Active IV ASDIRECTED Medication Orders Sodium Chloride (Normal Saline) 1,000 mls @ 400 mls/hr IV ASDIRECTED ZOEY Last Admin: 09/17/17 08:02 Dose: 400 mls/hr Labs: Laboratory Tests 09/17/17 09/17/17 09/17/17 Range/Units 08:04 08:04 08:22 WBC 13.8 H (4.5-11.0) K/uL RBC 4.81 (3.30-5.50) M/uL Hgb 14.6 (12.0-15.0) g/dL Hct 42.8 (36.0-48.0) % MCV 89 (80-98) fL MCH 30 (27-31) pg MCHC 34 (32-36) % Plt Count 351 (150-400) K/uL Neut % (Auto) 76 H (36-66) % Lymph % (Auto) 16 L (24-44) % [place] % (Auto) 7 H (2-6) % Eos % (Auto) 1 L (2-4) % Baso % (Auto) 0 (0-1) % Sodium 136 L (140-148) mmol/L Potassium 3.5 L (3.6-5.2) mmol/L Chloride 101 (100-108) mmol/L Carbon Dioxide 23 (21-32) mmol/L Anion Gap 15.5 H (5.0-14.0) mmol/L BUN 7 (7-18) mg/dL Creatinine 1.1 H (0.6-1.0) mg/dL Est Cr Clr Drug Dosing 40.59 mL/min Estimated GFR (MDRD) 52 L (>60) Glucose 100 (74-106) mg/dL Calcium 9.3 (8.5-10.1) mg/dL Total Bilirubin 0.4 (0.2-1.0) mg/dL AST 13 L (15-37) U/L ALT 23 (12-78) U/L Alkaline Phosphatase 81 (46-116) U/L C-Reactive Protein 1.10 H (0.0-0.3) mg/dL Total Protein 7.3 (6.4-8.2) g/dL Albumin 3.2 L (3.4-5.0) g/dL Globulin 4.1 H (2.3-3.5) g/dL Albumin/Globulin Ratio 0.8 L (1.2-2.2) Meds: Medications Generic Name Dose Route Start Last Admin Trade Name Freq PRN Reason Stop Dose Admin Sodium Chloride 1,000 mls @ 400 mls/hr 09/17/17 08:00 09/17/17 08:02 Normal Saline IV 400 mls/hr ASDIRECTED ZOEY Administration Discontinued Medications Generic Name Dose Route Start Last Admin Trade Name Freq PRN Reason Stop Dose Admin Lorazepam 0.5 mg 09/17/17 07:51 09/17/17 08:00 Ativan IVPUSH 09/17/17 07:52 0.5 mg ONETIME ONE Administration Ondansetron HCl 4 mg 09/17/17 07:50 09/17/17 08:02 Zofran IVPUSH 09/17/17 07:51 4 mg ONETIME ONE Administration - Re-Assessments/Exams Free Text/Narrative Re-Assessment/Exam: 09/17/17 10:27 pt had a chest xray which shows some chtronic changes, Her wbc is 12,000. She has no fever. Her lab work looks good. 09/17/17 10:45 pt is is on protonix for her stomach. She is not using her xanax because she does not like how it makes her feel. We talked at length about her nutrition and how at this opoint she needs to keep eating to build her body back. Departure - Departure Time of Disposition: 10:46 Disposition: Home, Self-Care 01 Condition: Fair Clinical Impression: Anxiety, History of recent pneumonia - Discharge Information Referrals: PCP,None [Primary Care Provider] - Forms: ED Department Discharge Care Plan Goals: nicoderm patch 21,improve eating patterns, follow up appt with her own physian, , use the protonix 40mg for stomach, 5 days of levoquin, zoforan as needed for nausea, ativan .5 mg bid for anxiety, encourage ambulation, - My Orders Last 24 Hours: My Active Orders 09/17/17 07:50 Chest 2V [CR] Stat UA W/MICROSCOPIC [URIN] Urgent 09/17/17 08:00 Sodium Chloride 0.9% [Normal Saline] 1,000 ml IV ASDIRECTED 09/17/17 10:22 LORazepam [Ativan] 0.5 mg PO ONETIME ONE - Assessment/Plan Last 24 Hours: My Active Orders 09/17/17 07:50 Chest 2V [CR] Stat UA W/MICROSCOPIC [URIN] Urgent 09/17/17 08:00 Sodium Chloride 0.9% [Normal Saline] 1,000 ml IV ASDIRECTED 09/17/17 10:22 LORazepam [Ativan] 0.5 mg PO ONETIME ONE
[2017-09-17] MEDS ORDERED: Sodium Chloride 0.9% 1,000 ML IV SCH (08:00)
[2017-09-17 08:55] VITALS: BP 97/60
[2017-09-17] MEDS ORDERED: LORazepam 0.5 MG Tab PO ONE (10:22)
--- NOTE | 2017-09-18 09:09 | CR ---
CHEST: 2 view CLINICAL HISTORY:SOB, chest heaviness COMPARISON:21 June 2017 FINDINGS: Lungs are hyperaerated. No infiltrate effusion or pneumothorax is seen IMPRESSION: Mild hyperaeration. Lung ayoub are clear
== END 2017-09-17 11:13 | disposition home or self-care (01) ==
LOC: JP.ED 07:12
DX: F41.9 Anxiety disorder, unspecified (principal); F17.210 Nicotine dependence, cigarettes, uncomplicated; Z87.01 Personal history of pneumonia (recurrent); Z88.5 Allergy status to narcotic agent; Z79.899 Other long term (current) drug therapy
CPT/HCPCS: 36415; 71046; 80053; 81001; 85025; 86140; 96374; 96375; 99285; A9270; J2060; J2405; J7030

== ENCOUNTER 2018-06-17 00:55 | Emergency (ER) | payer OTHER ==
[2018-06-17] MEDS ORDERED: Nitroglycerin 0.4 MG Tab.SL SL PRN (01:29)
[2018-06-17] MEDS ORDERED: Aspirin 81 MG Tab.Chew PO ONE (01:29)
[2018-06-17] MEDS ORDERED: Morphine 4 MG/ML Syringe IVPUSH PRN (01:30)
--- NOTE | 2018-06-17 01:41 | EDM.PDOC ---
ED HPI GENERAL MEDICAL PROBLEM - General Chief Complaint: Chest Pain Stated Complaint: CHEST PAIN Time Seen by Provider: 06/17/18 01:15 Source of Information: Reports: Patient History Limitations: Reports: No Limitations - History of Present Illness INITIAL COMMENTS - FREE TEXT/NARRATIVE: 52-year-old former smoker with history of lung cancer, currently in remission, presents with concerns of substernal chest pain. She reports that the pain awoke her from sleep at approximately midnight. The pain is described as a squeezing pain underneath her sternum, it radiates into her back. The pain is pleuritic. It has accompanied dyspnea. She has no history of similar symptoms in the past. She does report a history of dyspepsia. She has no history of DVT. She is not a known lower extremity swelling or pain. She has no history of cardiac disease. No family history of cardiac disease nor hypertension or hyperlipidemia. She stopped smoking approximately 6 months ago. She's been treated for lung cancer and reports that she is currently been told she is in remission and is a longer on chemotherapy. Chest Pain Score (Numeric/FACES): 8 - Related Data Allergies Allergy/AdvReac Type Severity Reaction Status Date / Time codeine Allergy Severe Swelling Verified 06/17/18 01:00 alcohol Allergy Vomiting Verified 06/17/18 01:00 Home Meds: Home Meds Omeprazole [priLOSEC OTC] 20 mg PO DAILY 03/20/13 [History] Acyclovir 400 mg PO BID PRN 03/23/15 [History] Albuterol [Ventolin HFA] 18 gm IN Q4HR PRN 03/23/15 [History] Mupirocin Oint [Bactroban Oint] 2 percent TOP ASDIRECTED PRN 08/10/17 [History] Ondansetron HCl [Ondansetron] 4 mg PO ASDIRECTED PRN 08/10/17 [History] medroxyPROGESTERone Acetate [Depo-Provera] 1 applic IM Q90D 09/12/17 [History] ALPRAZolam [Xanax] 0.25 mg PO BID PRN 09/13/17 [History] Promethazine [Phenadoz] 25 mg RC TID PRN #7 supp 09/13/17 [Rx] Acetaminophen [Tylenol] 325 mg PO Q4H PRN 12/13/17 [History] Umeclidinium Brm/Vilanterol Tr [Anoro Ellipta 62.5-25 MCG] 1 puff INH DAILY [History] Past Medical History - Past Health History Medical/Surgical History: Denies Medical/Surgical History Respiratory History: Reports: Asthma, Bronchitis, Recurrent, Pneumonia, Recurrent, Other (See Below) Other Respiratory History: 03/06/17 dx pneumonia Gastrointestinal History: Reports: 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, 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: Musculoskeletal History: Reports: Arthritis Psychiatric History: Reports: Anxiety, Depression Oncologic (Cancer) History: Reports: Lung - Infectious Disease History Infectious Disease History: Reports: Chicken Pox - Past Surgical History Respiratory Surgical History: Reports: Lung Biopsies Other Respiratory Surgeries/Procedures: lung cancer GI Surgical History: Reports: Cholecystectomy, Hernia Repair/Other Female Surgical History: Reports: Section Social & Family History - Family History Family Medical History: Noncontributory - Tobacco Use Smoking Status *Q: Former Smoker Used Tobacco, but Quit: Yes Month/Year Tobacco Last Used: dec 2017 - Caffeine Use Caffeine Use: Reports: Soda Other Caffeine Use: occasional mtn dew - Recreational Drug Use Recreational Drug Use: Yes Recreational Drug Type: Reports: Marijuana/Hashish Recreational Drug Use Frequency: Rarely - Living Situation & Occupation Living situation: Reports: , with Family ED ROS GENERAL - Review of Systems Review Of Systems: See Below Constitutional: Reports: No Symptoms. Denies: Fever, Chills HEENT: Reports: No Symptoms Respiratory: Reports: Shortness of Breath, Pleuritic Chest Pain Cardiovascular: Reports: Chest Pain Endocrine: Reports: No Symptoms GI/Abdominal: Denies: Black Stool, Bloody Stool, Nausea, Vomiting : Reports: No Symptoms Musculoskeletal: Reports: No Symptoms Skin: Reports: No Symptoms Neurological: Reports: No Symptoms Psychiatric: Reports: No Symptoms Hematologic/Lymphatic: Reports: No Symptoms Immunologic: Reports: No Symptoms ED EXAM, GENERAL - Physical Exam Exam: See Below Exam Limited By: No Limitations General Appearance: Alert, No Apparent Distress Eye Exam: Bilateral Eye: EOMI Nose: Normal Inspection Throat/Mouth: Normal Inspection Head: Atraumatic, Normocephalic Neck: Normal Inspection Respiratory/Chest: No Respiratory Distress, Lungs Clear Cardiovascular: Regular Rate, Rhythm GI/Abdominal: Soft, No Distention, Tender (mild epigastric) Back Exam: Normal Inspection Extremities: Normal Inspection, Normal Range of Motion Neurological: Alert, Oriented Psychiatric: Normal Affect, Normal Mood Skin Exam: Warm, Dry EKG INTERPRETATION EKG Date: 06/17/18 Rhythm: NSR Woodrow: Normal P-Wave: Present QRS: Normal ST-T: Normal QT: Normal Comparison: No Change Course - Vital Signs Last Recorded V/S: Last Vital Signs Temp 35.7 C 06/17/18 01:05 Pulse 77 06/17/18 04:21 Resp 13 06/17/18 04:21 BP 110/63 06/17/18 04:21 Pulse Ox 95 06/17/18 04:21 - Orders/Labs/Meds Orders: Active Orders 24 hr Category Date Time Status Iopamidol [Isovue-370 (76%)] Med 06/17/18 01:45 Active 56 ml IV . DIRECTED Lactated Ringers [Ringers, Lactated] 1,000 ml Med 06/17/18 02:30 Active IV ASDIRECTED Morphine Med 06/17/18 01:30 Active 4 mg IVPUSH Q4H PRN Nitroglycerin [Nitrostat] Med 06/17/18 01:29 Active 0.4 mg SL Q5M PRN Sodium Chloride 0.9% [Normal Saline] 83 ml Med 06/17/18 01:45 Active IV ASDIRECTED Medication Orders Sodium Chloride (Normal Saline) 83 mls @ 3 mls/sec IV ASDIRECTED [facility] Last Admin: 06/17/18 02:18 Dose: 3 mls/sec Lactated Ringer's (Ringers, Lactated) 1,000 mls @ 999 mls/hr IV ASDIRECTED [facility] Last Admin: 06/17/18 02:32 Dose: 999 mls/hr Iopamidol (Isovue-370 (76%)) 56 ml IV . DIRECTED [facility] Last Admin: 06/17/18 02:18 Dose: 100 ml Morphine Sulfate (Morphine) 4 mg IVPUSH Q4H PRN PRN Reason: Pain Last Admin: 06/17/18 01:51 Dose: 4 mg Nitroglycerin (Nitrostat) 0.4 mg SL Q5M PRN PRN Reason: Chest Pain Last Admin: 06/17/18 01:40 Dose: 0.4 mg Labs: Laboratory Tests 06/17/18 06/17/18 06/17/18 Range/Units 01:38 01:38 01:38 WBC 7.5 (4.5-11.0) K/uL RBC 3.88 (3.30-5.50) M/uL Hgb 12.5 (12.0-15.0) g/dL Hct 38.9 (36.0-48.0) % MCV 100 H (80-98) fL MCH 32 H (27-31) pg MCHC 32 (32-36) % Plt Count 190 (150-400) K/uL Sodium 139 L (140-148) mmol/L Potassium 3.4 L (3.6-5.2) mmol/L Chloride 103 (100-108) mmol/L Carbon Dioxide 23 (21-32) mmol/L Anion Gap 16.4 H (5.0-14.0) mmol/L BUN 9 (7-18) mg/dL Creatinine 1.0 (0.6-1.0) mg/dL Est Cr Clr Drug Dosing TNP Estimated GFR (MDRD) 58 L (>60) Glucose 109 H (74-106) mg/dL Calcium 9.1 (8.5-10.1) mg/dL Total Bilirubin 0.2 (0.2-1.0) mg/dL AST 12 L (15-37) U/L ALT 16 (12-78) U/L Alkaline Phosphatase 81 (46-116) U/L Troponin I < 0.017 (0.000-0.056) ng/mL Total Protein 7.1 (6.4-8.2) g/dL Albumin 3.3 L (3.4-5.0) g/dL Globulin 3.8 H (2.3-3.5) g/dL Albumin/Globulin Ratio 0.9 L (1.2-2.2) Lipase 171 (73-393) U/L 06/17/18 Range/Units 04:00 WBC (4.5-11.0) K/uL RBC (3.30-5.50) M/uL Hgb (12.0-15.0) g/dL Hct (36.0-48.0) % MCV (80-98) fL MCH (27-31) pg MCHC (32-36) % Plt Count (150-400) K/uL Sodium (140-148) mmol/L Potassium (3.6-5.2) mmol/L Chloride (100-108) mmol/L Carbon Dioxide (21-32) mmol/L Anion Gap (5.0-14.0) mmol/L BUN (7-18) mg/dL Creatinine (0.6-1.0) mg/dL Est Cr Clr Drug Dosing Estimated GFR (MDRD) (>60) Glucose (74-106) mg/dL Calcium (8.5-10.1) mg/dL Total Bilirubin (0.2-1.0) mg/dL AST (15-37) U/L ALT (12-78) U/L Alkaline Phosphatase (46-116) U/L Troponin I < 0.017 (0.000-0.056) ng/mL Total Protein (6.4-8.2) g/dL Albumin (3.4-5.0) g/dL Globulin (2.3-3.5) g/dL Albumin/Globulin Ratio (1.2-2.2) Lipase (73-393) U/L Meds: Medications Generic Name Dose Route Start Last Admin Trade Name Freq PRN Reason Stop Dose Admin Sodium Chloride 83 mls @ 3 mls/sec 06/17/18 01:45 06/17/18 02:18 Normal Saline IV 3 mls/sec ASDIRECTED ZOEY Administration Lactated Ringer's 1,000 mls @ 999 mls/hr 06/17/18 02:30 06/17/18 02:32 Ringers, Lactated IV 999 mls/hr ASDIRECTED ZOEY Administration Iopamidol 56 ml 06/17/18 01:45 06/17/18 02:18 Isovue-370 (76%) IV 100 ml . DIRECTED ZOEY Administration Morphine Sulfate 4 mg 06/17/18 01:30 06/17/18 01:51 Morphine IVPUSH 4 mg Q4H PRN Administration Pain Nitroglycerin 0.4 mg 06/17/18 01:29 06/17/18 01:40 Nitrostat SL 0.4 mg Q5M PRN Administration Chest Pain Discontinued Medications Generic Name Dose Route Start Last Admin Trade Name Freq PRN Reason Stop Dose Admin Aspirin 324 mg 06/17/18 01:29 06/17/18 01:40 Aspirin PO 06/17/18 01:30 324 mg ONETIME ONE Administration Al Hydroxide/Mg Hydroxide 15 0 ml 06/17/18 02:27 06/17/18 02:36 ml/ Lidocaine HCl 15 ml PO 06/17/18 02:28 30 ml ONETIME ONE Administration Sodium Chloride 10 ml 06/17/18 01:38 06/17/18 02:18 Saline Flush FLUSH 06/17/18 01:39 10 ml ONETIME ONE Administration - Re-Assessments/Exams Free Text/Narrative Re-Assessment/Exam: 52-year-old with history of tobacco use and lung cancer presents with concerns of pleuritic substernal chest pain. No history of cardiac disease. On exam her vitals are normal, she is oxygenating normally on room air. EKG is nonischemic. We will obtain serial troponins to rule out NSTEMI, in the meantime will treat her presumptively for this with aspirin and trial of sublingual nitroglycerin. If Nitroglycerin does not relieve her pain well treated with morphine and possibly GI cocktail. Given the pleuritic nature of her pain and her history of malignancy will perform a CT angiogram of her chest for PE, she is too high risk for d-dimer testing. 06/17/18 01:43 Free Text/Narrative Re-Assessment/Exam: CTA negative for acute process Trop neg x2 Labs otherwise unremarkable Feel improved after GI cocktail, morphine, observation Most suspicion for gastritis given hx of this, tenderness Will add sucralfate (already on H2), close f/u with PCP, do not believe we need provocative cardiac testing 06/17/18 04:31 Departure - Departure Time of Disposition: 04:33 Disposition: Home, Self-Care 01 Clinical Impression: Epigastric pain Instructions: Nonspecific Chest Pain, [id number] Referrals: PCP,None [Primary Care Provider] - Forms: ED Department Discharge Additional Instructions: We did not find a cause for your symptoms on your work up in the ER tonight We suspect they may be due to gastritis Please continue your acid suppressive medication and take the prescribed sucralfate in addition to this. Make an appointment to follow up with your primary doctor and return to the ER for significant worsening - My Orders Last 24 Hours: My Active Orders 06/17/18 01:29 Nitroglycerin [Nitrostat] 0.4 mg SL Q5M PRN 06/17/18 01:30 Morphine 4 mg IVPUSH Q4H PRN 06/17/18 01:45 Iopamidol [Isovue-370 (76%)] 56 ml IV . DIRECTED Sodium Chloride 0.9% [Normal Saline] 83 ml IV ASDIRECTED 06/17/18 02:30 Lactated Ringers [Ringers, Lactated] 1,000 ml IV ASDIRECTED - Assessment/Plan Last 24 Hours: My Active Orders 06/17/18 01:29 Nitroglycerin [Nitrostat] 0.4 mg SL Q5M PRN 06/17/18 01:30 Morphine 4 mg IVPUSH Q4H PRN 06/17/18 01:45 Iopamidol [Isovue-370 (76%)] 56 ml IV . DIRECTED Sodium Chloride 0.9% [Normal Saline] 83 ml IV ASDIRECTED 06/17/18 02:30 Lactated Ringers [Ringers, Lactated] 1,000 ml IV ASDIRECTED
[2018-06-17] MEDS: Sodium Chloride 0.9% 10 ML Syringe FLUSH ONE ×2 (01:43→02:18)
[2018-06-17] MEDS ORDERED: Iopamidol 755 Mg/ML 100 ML Bottle IV SCH (01:45)
[2018-06-17] MEDS ORDERED: Alum Hydrox/Mag Hydrox/Simeth 15 ML, Lidocaine 2% 15 ML PO ONE ×2 (02:27)
[2018-06-17] MEDS ORDERED: Lactated Ringers 1,000 ML IV SCH (02:30)
--- NOTE | 2018-06-17 03:18 | CRLCT ---
INDICATION: Chest pain. Shortness of breath. Concern for PE. TECHNIQUE: The chest was scanned from the apices to the lung bases with IV contrast. Sagittal and coronal reformatted images were generated. Comparison: None. FINDINGS: The thoracic inlet is unremarkable. Visualized thyroid gland is unremarkable. The thoracic aorta is normal in caliber without evidence of aneurysm or dissection. There is good opacification of the pulmonary arteries. No filling defects to suggest pulmonary emboli. There are emphysematous changes noted. There is a right apical bulla. No consolidations or pleural effusions. Small calcified left lower lobe granuloma. Few partially opacified right lower lobe rhonchi suggesting mucoid plugging. No pleural effusions. Chronic left lateral 6th rib deformity. IMPRESSION: 1. No evidence of pulmonary emboli or aortic dissection. 2. Emphysematous changes with a right apical bulla. 3. Calcified granuloma left lower lobe. 4. Probable mucous plugging right lower lobe. Please note that all CT scans at this facility use dose modulation, iterative reconstruction, and/or weight-based dosing when appropriate to reduce radiation dose to as low as reasonably achievable. Dictated by Omar Casey MD @ Jun 18 2018 9:54AM Signed by Dr. Omar Casey @ Jun 18 2018 10:01AM
[2018-06-17 04:22] VITALS: BP 110/63
== END 2018-06-17 04:50 | disposition home or self-care (01) ==
LOC: JP.ED 00:55
DX: R10.13 Epigastric pain (principal); J45.909 Unspecified asthma, uncomplicated; K21.9 Gastro-esophageal reflux disease without esophagitis; Z88.5 Allergy status to narcotic agent; Z79.899 Other long term (current) drug therapy; Z87.891 Personal history of nicotine dependence
CPT/HCPCS: 36415; 71275; 80053; 83690; 84484; 85027; 93005; 96361; 96374; 99285; A9270; J2270; J7030; J7120; Q9967

== ENCOUNTER 2019-08-25 08:46 | Emergency (ER) | payer OTHER ==
[2019-08-25] MEDS ORDERED: Sodium Chloride 0.9% 10 ML Syringe FLUSH PRN (08:59)
[2019-08-25] MEDS ORDERED: Morphine 10 MG/ML Syringe IVPUSH ONE (08:59)
[2019-08-25] MEDS ORDERED: Ondansetron 4 MG/2 ML SDV IVPUSH ONE ×2 (09:09→10:31)
--- NOTE | 2019-08-25 09:15 | EDM.PDOC ---
ED HPI GENERAL MEDICAL PROBLEM - General Chief Complaint: Upper Extremity Injury/Pain Stated Complaint: L WRIST INJURY Time Seen by Provider: 08/25/19 08:58 Source of Information: Reports: Patient History Limitations: Reports: No Limitations - History of Present Illness INITIAL COMMENTS - FREE TEXT/NARRATIVE: Patient presents for evaluation of a left wrist injury sustained today when she fell out of bed onto the floor, landing on her hyper flexed left wrist. There was immediate, severe pain. She contacted her son who brought her to the emergency department. Pain is significant. There are no other injuries except the wrist. Past medical history is significant for cancer treatment. She has not had anything to eat or drink since the injury and has not taken any medication today. Onset: Today, Sudden Location: Reports: Upper Extremity, Left (Left wrist with obvious deformity.) Quality: Reports: Sharp, Throbbing Severity: Severe Improves with: Reports: None Worsens with: Reports: Movement Context: Reports: Trauma Left Wrist Pain Score (Numeric/FACES): 10 - Related Data Allergies Allergy/AdvReac Type Severity Reaction Status Date / Time codeine Allergy Severe Swelling Verified 08/25/19 08:55 alcohol Allergy Vomiting Verified 08/25/19 08:55 Home Meds: Home Meds Omeprazole [priLOSEC OTC] 20 mg PO DAILY 03/20/13 [History] Acyclovir 400 mg PO BID PRN 03/23/15 [History] Albuterol [Ventolin HFA] 18 gm IN Q4HR PRN 03/23/15 [History] ondansetron HCL [Ondansetron] 4 mg PO ASDIRECTED PRN 08/10/17 [History] ALPRAZolam [Xanax] 0.25 mg PO BID PRN 09/13/17 [History] Promethazine [Phenadoz] 25 mg RC TID PRN #7 supp 09/13/17 [Rx] Acetaminophen [Tylenol] 325 mg PO Q4H PRN 12/13/17 [History] Sucralfate [Carafate] 1 gm PO TID #21 ml 06/17/18 [Rx] Umeclidinium Brm/Vilanterol Tr [Anoro Ellipta 62.5-25 MCG] 1 puff INH DAILY 06/17/18 [History] Past Medical History - Past Health History Medical/Surgical History: Denies Medical/Surgical History Respiratory History: Reports: Asthma, Bronchitis, Recurrent, Pneumonia, Recurrent, Other (See Below) Other Respiratory History: 03/06/17 dx pneumonia Gastrointestinal History: Reports: Gastritis, GERD [employer] History: Reports: Musculoskeletal History: Reports: Arthritis Psychiatric History: Reports: Anxiety, Depression Oncologic (Cancer) History: Reports: Lung - Infectious Disease History Infectious Disease History: Reports: Chicken Pox - Past Surgical History Respiratory Surgical History: Reports: Lung Biopsies Other Respiratory Surgeries/Procedures: lung cancer GI Surgical History: Reports: Cholecystectomy, Hernia Repair/Other Female Surgical History: Reports: Section Social & Family History - Family History Family Medical History: Noncontributory - Tobacco Use Smoking Status *Q: Former Smoker Used Tobacco, but Quit: Yes Month/Year Tobacco Last Used: 2 years - Caffeine Use Caffeine Use: Reports: Soda Other Caffeine Use: occasional mtn dew - Recreational Drug Use Recreational Drug Use: Yes Recreational Drug Type: Reports: Marijuana/Hashish - Living Situation & Occupation Living situation: Reports: , with Family Review of Systems - Review of Systems Review Of Systems: Comprehensive ROS is negative, except as noted in HPI. ED EXAM, GENERAL - Physical Exam Exam: See Below Free Text/Narrative:: This is an adult female on the cart in room 7 with her forearm and wrist resting on a pillow. 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 She does not move the wrist. Exam Limited By: No Limitations General Appearance: Moderate Distress Extremities: Limited Range of Motion, Other (The left wrist shows a "swan neck" deformity. There is no circulatory compromise of any of the fingers of the left hand. 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 The remainder of the forearm proximal to the painful area is nontender.) ED TRAUMA EXTREMITY PROCEDURES - Splinting Left Upper Extremity Splint Site: Left forearm volar splint Pre-Procedure NV Status: Normal (The patient does have pre-existing paresthesias of all fingers secondary to her chemotherapy. There was no change in her usual degree of paresthesia immediately after the accident or following splinting.) Post-Procedure NV Status: Normal Splint Material: Fiberglass Splint Design: Volar Applied & Form Fitted By: Provider Provider Post-Splint Application NV Check: NV Status Normal Complications: No Course - Vital Signs Last Recorded V/S: Last Vital Signs Temp 36.3 C 08/25/19 08:51 Pulse 83 08/25/19 10:14 Resp 16 08/25/19 10:14 BP 97/68 08/25/19 10:14 Pulse Ox 95 08/25/19 10:14 - Orders/Labs/Meds Orders: Active Orders 24 hr Category Date Time Status Wrist Comp Min 3V Lt [CR] Stat Exams 08/25/19 09:00 Ordered Sodium Chloride 0.9% [Saline Flush] Med 08/25/19 08:59 Ordered 10 ml FLUSH ASDIRECTED PRN Saline Lock Insert [OM.PC] Routine Oth 08/25/19 08:59 Ordered Medication Orders Sodium Chloride (Saline Flush) 10 ml FLUSH ASDIRECTED PRN PRN Reason: Keep Vein Open Last Admin: 08/25/19 09:18 Dose: 10 ml Documented by: Labs: Laboratory Tests 08/25/19 08/25/19 Range/Units 09:10 09:10 WBC 5.8 (4.5-11.0) K/uL RBC 4.40 (3.30-5.50) M/uL Hgb 13.4 (12.0-15.0) g/dL Hct 41.5 (36.0-48.0) % MCV 94 (80-98) fL MCH 31 (27-31) pg MCHC 32 (32-36) % Plt Count 232 (150-400) K/uL Neut % (Auto) 60 (36-66) % Lymph % (Auto) 29 (24-44) % [place] % (Auto) 8 H (2-6) % Eos % (Auto) 3 (2-4) % Baso % (Auto) 0 (0-1) % Sodium 142 (140-148) mmol/L Potassium 3.7 (3.6-5.2) mmol/L Chloride 104 (100-108) mmol/L Carbon Dioxide 26 (21-32) mmol/L Anion Gap 11.8 (5.0-14.0) mmol/L BUN 7 (7-18) mg/dL Creatinine 1.3 H (0.6-1.0) mg/dL Est Cr Clr Drug Dosing 42.65 mL/min Estimated GFR (MDRD) 43 L (>60) Glucose 101 (74-106) mg/dL Calcium 9.1 (8.5-10.1) mg/dL Meds: Medications Generic Name Dose Route Start Last Admin Trade Name Fremarixa PRN Reason Stop Dose Admin Sodium Chloride 10 ml 08/25/19 08:59 08/25/19 09:18 Saline Flush FLUSH 10 ml ASDIRECTED PRN Administration Keep Vein Open Discontinued Medications Generic Name Dose Route Start Last Admin Trade Name Freq PRN Reason Stop Dose Admin Fentanyl 100 mcg 08/25/19 09:38 08/25/19 09:44 Sublimaze IVPUSH 08/25/19 09:39 100 mcg ONETIME ONE Administration Morphine Sulfate 5 mg 08/25/19 08:59 08/25/19 09:20 Morphine IVPUSH 08/25/19 09:00 5 mg ONETIME ONE Administration Ondansetron HCl 4 mg 08/25/19 09:09 08/25/19 09:15 Zofran IVPUSH 08/25/19 09:10 4 mg ONETIME ONE Administration Ondansetron HCl 4 mg 08/25/19 10:31 08/25/19 10:44 Zofran IVPUSH 08/25/19 10:32 4 mg ONETIME ONE Administration - Re-Assessments/Exams Free Text/Narrative Re-Assessment/Exam: 08/25/19 09:15 The patient is allergic to codeine stating that it gave her some difficulty swallowing and facial swelling. She has had morphine and other intravenous narcotics without difficulty however. She will be given 5 mg of morphine IV and we will obtain images of the left wrist. 08/25/19 10:08 The patient had some localized itching and redness when given the morphine injection so she will not receive anymore. It had minimal effect on her pain. She will be given fentanyl 100 g as an IV dose. She has had some nausea and will be given 4 mg of Zofran IV. I showed her pictures of her fracture which shows a comminuted, intra-articular, dorsally displaced distal radius fracture. The ulna appears intact. There is no orthopedic coverage here today and the patient, given a list of options, would like to go to [facility] for further care of this injury. I discussed her case with Arielle Corona, the orthopedic physician assistant quality manager covering this weekend. She will look at the images and then call me back to see if this is something they can treat. 08/25/19 10:54 I received a call back from Arielle Corona who accepts the patient in transfer. Patient will remain nothing by mouth. She was relatively nauseated from the fentanyl and was given an additional 4 mg of ondansetron. A volar splint was personally applied to the left forearm by myself. The patient's son will transport her directly to [facility] in [place]. Departure - Departure Time of Disposition: 11:00 Disposition: DC/Tfer to Acute Hospital 02 Condition: Good Clinical Impression: Fracture of radius Qualifiers: Encounter type: initial encounter Radius location: distal Fracture type: closed Fracture morphology: other intra-articular Laterality: left Qualified Code(s): S52.572A - Other intraarticular fracture of lower end of left radius, initial encounter for closed fracture - Discharge Information *PRESCRIPTION DRUG MONITORING PROGRAM REVIEWED*: Not Applicable *COPY OF PRESCRIPTION DRUG MONITORING REPORT IN PATIENT MARLYN: Not Applicable Referrals: PCP,None [Primary Care Provider] - Forms: ED Department Discharge Additional Instructions: Go directly to the [facility] emergency Department and to be seen by orthopedic staff on-call. Elevate the arm as much as possible. Do not eat or drink anything. Sepsis Event Note (ED) - Evaluation Sepsis Screening Result: No Definite Risk - Focused Exam Vital Signs: Vital Signs Temp Pulse Resp BP Pulse Ox 08/25/19 10:14 83 16 97/68 95 08/25/19 08:51 36.3 C 90 18 127/66 99 - My Orders Last 24 Hours: My Active Orders 08/25/19 08:59 Sodium Chloride 0.9% [Saline Flush] 10 ml FLUSH ASDIRECTED PRN Saline Lock Insert [OM.PC] Routine 08/25/19 09:00 Wrist Comp Min 3V Lt [CR] Stat - Assessment/Plan Last 24 Hours: My Active Orders 08/25/19 08:59 Sodium Chloride 0.9% [Saline Flush] 10 ml FLUSH ASDIRECTED PRN Saline Lock Insert [OM.PC] Routine 08/25/19 09:00 Wrist Comp Min 3V Lt [CR] Stat
[2019-08-25] MEDS ORDERED: fentaNYL 100 MCG/2 ML SDV IVPUSH ONE (09:38)
[2019-08-25 11:03] VITALS: BP 109/73; PULSE 73
--- NOTE | 2019-08-26 12:40 | CR ---
Wrist Comp Min 3V Lt CLINICAL HISTORY: Wrist injury FINDINGS: Patient has a displaced angulated fracture of the distal radius at the metaphysis. There is osteoarthritis in the first carpometacarpal joint. Impression: Displaced fracture of the distal radius
== END 2019-08-25 11:08 ==
LOC: JP.ED 08:46
DX: S52.572A Other intraarticular fracture of lower end of left radius, initial encounter for closed fracture (principal); J45.909 Unspecified asthma, uncomplicated; K21.9 Gastro-esophageal reflux disease without esophagitis; M19.90 Unspecified osteoarthritis, unspecified site; F41.9 Anxiety disorder, unspecified; F32.9 Major depressive disorder, single episode, unspecified; Z87.891 Personal history of nicotine dependence; Z88.5 Allergy status to narcotic agent; Z91.09 Other allergy status, other than to drugs and biological substances; Z79.899 Other long term (current) drug therapy; W06.XXXA Fall from bed, initial encounter
CPT/HCPCS: 29125; 36415; 73110; 80048; 85025; 96374; 96375; 96376; 99284; J2270; J2405; J3010

== ENCOUNTER 2023-02-10 14:50 | Emergency (ER) | payer OTHER ==
[2023-02-10 15:53] LABS: APPEARANCE,URINE CLEAR (CLEAR); BILIRUBIN,URINE NEGATIVE (NEGATIVE); COLOR,URINE YELLOW (YELLOW); GLUCOSE,URINE NEGATIVE (NEGATIVE); KETONES,URINE NEGATIVE (NEGATIVE); LEUKOCYTE ESTERASE,URINE TRACE (NEGATIVE); NITRITE,URINE NEGATIVE (NEGATIVE); OCCULT BLOOD,URINE NEGATIVE (NEGATIVE); PH,URINE 5.5 (5.0-8.0); PROTEIN,URINE NEGATIVE (NEGATIVE); UROBILINOGEN,URINE 0.2 EU/dL (0.2-1.0)
[2023-02-10 15:55] LABS: AMORPHOUS SEDIMENT,URINE NOT SEEN; BACTERIA,URINE MODERATE; EPITHELIAL CELLS,URINE FEW; MUCUS,URINE NOT SEEN; RBC,URINE 0-5 (0-5); WBC,URINE 0-5 (0-5)
[2023-02-10] MEDS ORDERED: Ketorolac 30 MG/ML SDV IM ONE (15:58)
[2023-02-10 16:08] LABS: BASOPHILS PERCENT AUTO 0.1 % (0.1-1.3); EOSINOPHILS ABSOLUTE AUTO 0.04 K/uL (0.00-0.40); EOSINOPHILS PERCENT AUTO 0.6 % (0.0-5.4); HEMATOCRIT 38.1 % (34.3-46.0); HEMOGLOBIN 12.8 g/dL (11.2-15.5); IMMATURE GRAN PERCENT AUTO 0.3 % (0.0-0.7); LYMPHOCYTES ABSOLUTE AUTO 1.44 K/uL (0.8-3.3); LYMPHOCYTES PERCENT AUTO 20.5 % (11.4-47.7); MEAN CORPUSCULAR HEMOGLOBIN 30.3 pg (31.6-35.5); MEAN CORPUSCULAR HGB CONC 33.6 g/dL (31.6-35.5); MEAN CORPUSCULAR VOLUME 90.1 fL (81.4-99.0); MONOCYTES ABSOLUTE AUTO 0.49 K/uL (0.20-0.90); NEUTROPHILS ABSOLUTE AUTO 5.03 K/uL (1.0-7.6); NEUTROPHILS PERCENT AUTO 71.5 % (40.0-78.1); PLATELET COUNT,PLT 200 K/uL (130-375); RED BLOOD CELL COUNT 4.23 M/uL (3.77-5.24)
[2023-02-10 16:09] LABS: BASOPHILS ABSOLUTE AUTO 0.01 K/uL (0.00-0.10); IMMATURE GRAN ABSOLUTE AUTO 0.02 K/uL (0.00-0.23)
[2023-02-10 16:28] LABS: A/G RATIO 0.9 (1.2-2.2); ALANINE AMINOTRANSFERASE,ALT 13 U/L (12-78); ALBUMIN 3.3 g/dL (3.4-5.0); ALKALINE PHOSPHATASE 92 U/L (46-116); ASPARTATE AMNIOTRANSFERASE,AST 19 U/L (15-37); BILIRUBIN TOTAL 0.3 mg/dL (0.2-1.0); BLOOD UREA NITROGEN,BUN 9 mg/dL (7-18); CALCIUM 8.5 mg/dL (8.5-10.1); CARBON DIOXIDE,CO2 28 mmol/L (21-32); CHLORIDE,CL 102 mmol/L (100-108); CREATININE 0.9 mg/dL (0.6-1.0); EST CRCL DRUG DOSING (CG) 51.79 mL/min; ESTIMATED GFR 75 mL/min (>60); GLUCOSE RANDOM 92 mg/dL (74-106); POTASSIUM,K 3.4 mmol/L (3.6-5.2); PROTEIN TOTAL,TP 6.9 g/dL (6.4-8.2); SODIUM,NA 139 mmol/L (140-148)
[2023-02-10 16:34] LABS: ANION GAP 12.4 mmol/L (5.0-14.0)
[2023-02-10 17:29] VITALS: BP 126/76; PULSE 82
== END 2023-02-10 17:42 | disposition home or self-care (01) ==
LOC: JP.ED 14:50
DX: R10.31 Right lower quadrant pain (principal); K21.9 Gastro-esophageal reflux disease without esophagitis; Z79.899 Other long term (current) drug therapy; Z88.5 Allergy status to narcotic agent; Z91.048 Other nonmedicinal substance allergy status
CPT/HCPCS: 36415; 74176; 80053; 81001; 83605; 85025; 96372; 99284; J1885

== ENCOUNTER 2024-05-23 12:10 | Emergency (ER) | payer OTHER ==
[2024-05-23 14:44] LABS: EOSINOPHILS PERCENT AUTO 0.1 % (0.0-5.4); HEMATOCRIT 46.3 % (34.3-46.0); HEMOGLOBIN 15.7 g/dL (11.2-15.5); IMMATURE GRAN PERCENT AUTO 0.3 % (0.0-0.7); LYMPHOCYTES ABSOLUTE AUTO 1.11 K/uL (0.8-3.3); LYMPHOCYTES PERCENT AUTO 16.4 % (11.4-47.7); MEAN CORPUSCULAR HEMOGLOBIN 30.6 pg (31.6-35.5); MEAN CORPUSCULAR HGB CONC 33.9 g/dL (31.6-35.5); MEAN CORPUSCULAR VOLUME 90.3 fL (81.4-99.0); MONOCYTES ABSOLUTE AUTO 1.04 K/uL (0.20-0.90); MONOCYTES PERCENT AUTO 15.4 % (3.3-12.6); NEUTROPHILS ABSOLUTE AUTO 4.58 K/uL (1.0-7.6); NEUTROPHILS PERCENT AUTO 67.8 % (40.0-78.1); PLATELET COUNT,PLT 189 K/uL (130-375); RED BLOOD CELL COUNT 5.13 M/uL (3.77-5.24); WHITE BLOOD CELL COUNT,WBC 6.8 K/uL (3.2-11.0)
[2024-05-23] MEDS: Sodium Chloride 0.9% 1,000 ML IV SCH (14:48)
[2024-05-23 14:57] LABS: EOSINOPHILS ABSOLUTE AUTO 0.01 K/uL (0.00-0.40); IMMATURE GRAN ABSOLUTE AUTO 0.02 K/uL (0.00-0.23)
[2024-05-23 15:07] LABS: A/G RATIO 0.8 (1.2-2.2); ALANINE AMINOTRANSFERASE,ALT 15 U/L (12-78); ALBUMIN 3.5 g/dL (3.4-5.0); ALKALINE PHOSPHATASE 105 U/L (46-116); ASPARTATE AMNIOTRANSFERASE,AST 23 U/L (15-37); BILIRUBIN TOTAL 0.3 mg/dL (0.2-1.0); BLOOD UREA NITROGEN,BUN 35 mg/dL (7-18); C-REACTIVE PROTEIN 0.61 mg/dL (<0.50); CALCIUM 9.2 mg/dL (8.5-10.1); CARBON DIOXIDE,CO2 23 mmol/L (21-32); CHLORIDE,CL 99 mmol/L (100-108); CREATININE 1.1 mg/dL (0.6-1.0); EST CRCL DRUG DOSING (CG) 46.47 mL/min; ESTIMATED GFR 59 mL/min (>60); GLUCOSE RANDOM 96 mg/dL (74-106); PROTEIN TOTAL,TP 7.9 g/dL (6.4-8.2); SODIUM,NA 137 mmol/L (140-148)
[2024-05-23 15:49] VITALS: BP 140/88; PULSE 100
[2024-05-23] MEDS: Sodium Chloride 0.9% 1,000 ML IV ONE (15:57)
[2024-05-23] MEDS: Acetaminophen 325 MG Tab PO ONE (17:18)
== END 2024-05-23 17:23 | disposition home or self-care (01) ==
LOC: JP.ED 12:10
DX: J10.1 Influenza due to other identified influenza virus with other respiratory manifestations (principal); E86.0 Dehydration; Z88.5 Allergy status to narcotic agent; Z91.048 Other nonmedicinal substance allergy status; Z79.899 Other long term (current) drug therapy
CPT/HCPCS: 36415; 71045; 80053; 83605; 85025; 86140; 87040; 87428; 96360; 96361; 99283; 99285; A9270; J7030

== ENCOUNTER 2024-05-30 02:23 | Inpatient (IN) | payer OTHER ==
[2024-05-30 03:07] LABS: BASOPHILS PERCENT AUTO 0.1 % (0.1-1.3); HEMATOCRIT 40.3 % (34.3-46.0); HEMOGLOBIN 13.3 g/dL (11.2-15.5); IMMATURE GRAN ABSOLUTE AUTO 0.09 K/uL (0.00-0.23); IMMATURE GRAN PERCENT AUTO 0.6 % (0.0-0.7); LYMPHOCYTES ABSOLUTE AUTO 1.03 K/uL (0.8-3.3); LYMPHOCYTES PERCENT AUTO 7.3 % (11.4-47.7); MEAN CORPUSCULAR HEMOGLOBIN 30.4 pg (31.6-35.5); MEAN CORPUSCULAR VOLUME 92.2 fL (81.4-99.0); MONOCYTES ABSOLUTE AUTO 1.31 K/uL (0.20-0.90); MONOCYTES PERCENT AUTO 9.3 % (3.3-12.6); NEUTROPHILS PERCENT AUTO 82.7 % (40.0-78.1); PLATELET COUNT,PLT 261 K/uL (130-375); RED BLOOD CELL COUNT 4.37 M/uL (3.77-5.24)
[2024-05-30 03:09] LABS: BASOPHILS ABSOLUTE AUTO 0.01 K/uL (0.00-0.10)
[2024-05-30] MEDS: Sodium Chloride 0.9% 1,000 ML IV ONE (03:12)
[2024-05-30] MEDS: Sodium Chloride 0.9% 10 ML Syringe FLUSH PRN ×2 (03:13→05:43)
[2024-05-30 03:33] LABS: A/G RATIO 0.6 (1.2-2.2); ALANINE AMINOTRANSFERASE,ALT 16 U/L (12-78); ALBUMIN 2.9 g/dL (3.4-5.0); ALKALINE PHOSPHATASE 95 U/L (46-116); ASPARTATE AMNIOTRANSFERASE,AST 20 U/L (15-37); BILIRUBIN TOTAL 0.6 mg/dL (0.2-1.0); BLOOD UREA NITROGEN,BUN 13 mg/dL (7-18); CALCIUM 8.9 mg/dL (8.5-10.1); CARBON DIOXIDE,CO2 26 mmol/L (21-32); CHLORIDE,CL 99 mmol/L (100-108); CREATININE 1.1 mg/dL (0.6-1.0); ESTIMATED GFR 59 mL/min (>60); GLUCOSE RANDOM 128 mg/dL (74-106); POTASSIUM,K 3.7 mmol/L (3.6-5.2); PROTEIN TOTAL,TP 7.7 g/dL (6.4-8.2); SODIUM,NA 136 mmol/L (140-148)
[2024-05-30 03:34] LABS: ANION GAP 14.7 mmol/L (5.0-14.0)
[2024-05-30 03:44] LABS: APPEARANCE,URINE CLEAR (CLEAR); BILIRUBIN,URINE NEGATIVE (NEGATIVE); COLOR,URINE YELLOW (YELLOW); GLUCOSE,URINE NEGATIVE (NEGATIVE); KETONES,URINE NEGATIVE (NEGATIVE); LEUKOCYTE ESTERASE,URINE NEGATIVE (NEGATIVE); NITRITE,URINE NEGATIVE (NEGATIVE); OCCULT BLOOD,URINE NEGATIVE (NEGATIVE); PH,URINE 7.5 (5.0-8.0); PROTEIN,URINE 30 mg/dL (NEGATIVE)
[2024-05-30 04:13] LABS: AMORPHOUS SEDIMENT,URINE NOT SEEN; BACTERIA,URINE RARE; EPITHELIAL CELLS,URINE RARE; MUCUS,URINE FEW; RBC,URINE NOT SEEN (0-5); WBC,URINE 0-5 (0-5)
[2024-05-30] MEDS: Lactated Ringers 1,000 ML IV ONE (04:24)
[2024-05-30] MEDS: Acetaminophen 500 MG Tab PO ONE (04:35)
[2024-05-30] MEDS ORDERED: cefTRIAXone 1 GM in Sodium Chloride 0.9% 50 ML IV ONE (04:38)
[2024-05-30] MEDS ORDERED: Azithromycin 500 MG Vial IV ONE (04:39)
[2024-05-30] MEDS: Iopamidol 755 Mg/ML 100 ML Bottle IV SCH (05:42)
[2024-05-30] MEDS: Sodium Chloride 0.9% 100 ML IV SCH (05:43)
[2024-05-30] MEDS: Azithromycin 500 MG in Sodium Chloride 0.9% 250 ML IV ONE (06:13)
[2024-05-30] MEDS ORDERED: cefTRIAXone 1 GM in Sodium Chloride 0.9% 50 ML IV SCH (07:00)
[2024-05-30] MEDS ORDERED: Sennosides/Docusate Sodium 50-8.6 MG Tab PO PRN (07:25)
[2024-05-30] MEDS ORDERED: Ondansetron 4 MG Tab.DIS PO PRN (07:25)
[2024-05-30] MEDS ORDERED: Ondansetron 4 MG/2 ML SDV IV PRN (07:25)
[2024-05-30] MEDS ORDERED: Albuterol 0.083% 2.5 MG/3 ML Neb Soln NEB PRN (07:25)
[2024-05-30] MEDS: Sodium Chloride 0.9% 1,000 ML IV SCH ×2 (09:50→23:17)
[2024-05-30] MEDS: cefTRIAXone 1 GM in Sodium Chloride 0.9% 50 ML IV SCH (09:52)
[2024-05-30] MEDS: Lactobacillus Rhamnosus GG (Probiotic) Cap PO SCH (10:22)
[2024-05-30] MEDS: Enoxaparin 30 MG/0.3 ML Syringe SUBCUT SCH (10:22)
[2024-05-30] MEDS: Acetaminophen 325 MG Tab PO PRN (13:04)
[2024-05-30] MEDS: methylPREDNISolone Sodium Succinate 40 MG/1 ML SDV IVPUSH ONE (15:10)
[2024-05-30] MEDS: Melatonin 3 MG Tab PO PRN (21:11)
[2024-05-31 05:55] LABS: HEMATOCRIT 33.3 % (34.3-46.0); HEMOGLOBIN 11.1 g/dL (11.2-15.5); MEAN CORPUSCULAR HGB CONC 33.3 g/dL (31.6-35.5); RED BLOOD CELL COUNT 3.58 M/uL (3.77-5.24); WHITE BLOOD CELL COUNT,WBC 10.1 K/uL (3.2-11.0)
[2024-05-31 06:31] LABS: ANION GAP 11.1 mmol/L (5.0-14.0); CALCIUM 9.2 mg/dL (8.5-10.1); CREATININE 0.8 mg/dL (0.6-1.0); EST CRCL DRUG DOSING (CG) 55.56 mL/min; MAGNESIUM 1.7 mg/dL (1.8-2.4); POTASSIUM,K 3.9 mmol/L (3.6-5.2)
[2024-05-31] MEDS: predniSONE 20 MG Tab PO SCH (08:16)
[2024-05-31] MEDS: Magnesium Sulf/Wat 2 GM/50 mL 2 GM in Premix Bag 1 BAG IV SCH (09:27)
[2024-05-31] MEDS: Magnesium Oxide 400 MG Tab PO SCH (09:30)
[2024-06-01 06:02] LABS: ANION GAP 7.8 mmol/L (5.0-14.0); CALCIUM 9.3 mg/dL (8.5-10.1); CREATININE 0.9 mg/dL (0.6-1.0); EST CRCL DRUG DOSING (CG) 49.38 mL/min; POTASSIUM,K 3.9 mmol/L (3.6-5.2)
[2024-06-03 10:41] VITALS: BP 126/77; PULSE 109
== END 2024-06-01 17:42 | disposition home or self-care (01) | DRG 871 ==
LOC: JP.ED 02:23 → JP.MS 06:05
PROVIDERS: ADMIT Registered Nurse; ATTEND Hospitalist
DX: A41.9 Sepsis, unspecified organism (principal); J18.9 Pneumonia, unspecified organism; J96.01 Acute respiratory failure with hypoxia; J44.1 Chronic obstructive pulmonary disease with (acute) exacerbation; J44.0 Chronic obstructive pulmonary disease with (acute) lower respiratory infection; E86.0 Dehydration; K21.9 Gastro-esophageal reflux disease without esophagitis; F41.9 Anxiety disorder, unspecified; F12.90 Cannabis use, unspecified, uncomplicated; F32.A Depression, unspecified; Z98.891 History of uterine scar from previous surgery; Z90.49 Acquired absence of other specified parts of digestive tract; Z87.891 Personal history of nicotine dependence; Z85.118 Personal history of other malignant neoplasm of bronchus and lung; Z79.899 Other long term (current) drug therapy; Z88.8 Allergy status to other drugs, medicaments and biological substances
CPT/HCPCS: 36415; 71046; 71046-26; 71275; 80048; 80053; 81001; 83605; 83735; 84484; 85025; 85027; 87040; 93005; 93010; 96360; 96361; 99222; 99232; 99238; 99285; 99285-25; A9270-GY; J0456; J0696; J1650; J2919; J3475; J7030; J7050; J7120; J7512; Q9967